=== PATIENT | female | born 1965 | race Caucasian/White ===

== ENCOUNTER → 2018-02-04 15:20 | Outpatient (CLI) | payer OTHER, SELFPAY ==
--- NOTE | 2018-02-04 12:20 | EMB_PTH ---
PATIENT: ANNABEL CARSON LOC: [facility] U#:[id number] AGE/SX: 59/F ROOM: RE02/04/[address]: Dr. Fausto Carcamo MD : 1965 BED: DIS: SPEC #: [id number] RECD: 02/04/18 14:31 STATUS: MARISELA LULA #: [id number] NELI: 02/04/18 12:[address]: Fausto Carcamo DEPT: SURGICAL PATHOLOGY RECD BY: Carleen Caputo ENTERED: 02/04/18 15:57 SP TYPE: ENDOM BX/C [id number] DR: No Primary Care Phys Tissues: Endometrium, NOS Procedures: Surgery Specimen Level IV HEADER OPERATION: Endometrial biopsy PRE-OP DIAGNOSIS: Postmenopausal bleeding TISSUE SUBMITTED: Endometrial biopsy MICROSCOPIC DIAGNOSIS Endometrial biopsy: Weakly proliferative endometrium, blood and mucous. SJ:kerry 02/05/18 MICROSCOPIC DESCRIPTION Slides are reviewed. GROSS DESCRIPTION Received in fixative is one container labeled with the patient's name and designated endometrial biopsy. The specimen consists of multiple irregular and mucoid fragments of pink-bucio soft tissue that in aggregate measure 2 x 1.6 x 0.1 cm. The specimen is totally submitted in one cassette. / AM:kerry 02/04/18 TC:5 CPT: 27308
[2018-02-09 11:16] LABS: HPV Reflexed? NOT INDICATED
== END ==
PROVIDERS: Visit Provider Obstetrics & Gynecology
DX: Z12.4 Encounter for screening for malignant neoplasm of cervix (principal); N85.8 Other specified noninflammatory disorders of uterus; N95.0 Postmenopausal bleeding
CPT/HCPCS: 88175; 88305; G0145

== ENCOUNTER 2018-08-07 15:16 | Emergency (ER) | payer OTHER, SELFPAY ==
[2018-08-07 15:17] VITALS: BP 143/69; PULSE 61; RESP 17; TEMP 37.1; O2SAT 100; BMI 33.3
--- NOTE | 2018-08-07 15:28 | ED.VISSUMM ---
- ER Visit Summary Date of Service: 08/07/18 Chief Complaint: Injury dorsal proximal right forearm History of Present Illness: The patient is a 52 F who is right-hand dominant presents after mechanical fall injuring her right forearm. She denies pain. She denies paresthesia, anesthesia or motor weakness. She is on no anticoagulant. She denies any allergies. She denies shoulder pain, elbow pain, wrist pain or pain in her fingers or thumb. She states she slipped and fell onto her right elbow Physical Examination: Vital signs noted. There is no pain to palpation over the olecranon process, medial or lateral epicondyle and there is no pain over the radial head with supination or pronation. There is no pain palpation over the distal radius or ulna. There is no pain abrasion over the carpal bones, metacarpal bones or phalanges. Axillary, median, radial and ulnar nerve function intact. Radial pulses palpable. There is an area with avulsed skin/devitalized skin. There is also a gaping 2.0 cm laceration with what appears to be gravel. There is also a V-shaped laceration which is one-point centimeter and a irregularly shaped laceration which is 2.0 cm in length. Test Results: None Emergency Department Course and Treatment: Tetanus update since tetanus status is unknown. The wound was anesthetized by local infiltration and irrigated with 250 cc of normal saline. The skin was closed using 5-0 Ethilon. Simple interrupted sutures were placed. Treatment Plan: Clean wound, suture wound and appropriate home-going instructions for wound care Disposition: Discharged home in stable and improved condition Impression: 1. Mechanical fall with injury initial encounter 2. 1.0 cm laceration right forearm initial encounter 3. 2.0 cm laceration with superficial gravel right forearm initial encounter 3. 2.0 cm laceration right forearm initial encounter This note was generated with [employer] dictation software. It may contain incorrect words, spelling, and punctuation that were not noted in review of the chart prior to signing ED Disposition - Plan for ED Patient: Disposition: Home or Assisted Living Chief Complaint: Laceration Instructions: ED Laceration All Referrals: Care Physician,No Primary [Primary Care Provider] - Naomi Ghosh [Fountain Operator] - 10-14 Days suture removal Additional Instructions: Clean wound with peroxide and Q-tip 3 times a day then apply bacitracin ointment. Have wound reassessed in 2-3 days. If there is any colored drainage, swelling with redness or red streak return to the emergency department.
--- NOTE | 2018-08-07 15:31 | ED.DCSUM_ITS ---
- ER Visit Summary Date of Service: 08/07/18 Chief Complaint: Injury dorsal proximal right forearm History of Present Illness: The patient is a 52 F who is right-hand dominant presents after mechanical fall injuring her right forearm. She denies pain. She denies paresthesia, anesthesia or motor weakness. She is on no anticoagulant. She denies any allergies. She denies shoulder pain, elbow pain, wrist pain or pain in her fingers or thumb. She states she slipped and fell onto her right elbow Physical Examination: Vital signs noted. There is no pain to palpation over the olecranon process, medial or lateral epicondyle and there is no pain over the radial head with supination or pronation. There is no pain palpation over the distal radius or ulna. There is no pain abrasion over the carpal bones, metacarpal bones or phalanges. Axillary, median, radial and ulnar nerve f unction intact. Radial pulses palpable. There is an area with avulsed skin/devitalized skin. There is also a gaping 2.0 cm laceration with what appears to be gravel. There is also a V-shaped lace ration which is one-point centimeter and a irregularly shaped laceration which is 2.0 cm in length. Test Results: None Emergency Department Course and Treatment: Tetanus update since tetanus status is unknown. The wound was anesthetized by local infiltration and irrigated with 250 cc of normal saline. The skin was closed using 5-0 Ethilon. Simple interrupted sutures were placed. Treatment Plan: Clean wound, suture wound and appropriate home-going instructions for wound care Disposition: Discharged home in stable and improved condition Impression: 1. Mechanical fall with injury initial encounter 2. 1.0 cm laceration right forearm initial encounter 3. 2.0 cm laceration with superficial gravel right forearm initial encounter 3. 2.0 cm laceration right forearm initial encounter This note was generated with [employer] dictation software. It may contain incorrect words, spelling, and punctuation that were not noted in review of the chart prior to signing ED Disposition - Plan for ED Patient: Disposition: Home or Assisted Living Chief Complaint: Laceration Instructions: ED Laceration All Referrals: Care Physician,No Primary [Primary Care Provider] - Naomi Ghosh [Chemical Test Engineer] - 10-14 Days suture removal Additional Instructions: Clean wound with peroxide and Q-tip 3 times a day then apply bacitracin ointment. Have wound reassessed in 2-3 days. If there is any colored drainage, swelling with redness or red streak return to the emergency department.
[2018-08-07] MEDS: Diphth,Pertuss(Acell),Tet Vac 0.5 ML Vial IM (15:45)
[2018-08-07 16:50] VITALS: BP 122/68; PULSE 87; RESP 16; O2SAT 100
== END 2018-08-07 16:55 | disposition home or self-care (01) ==
PROVIDERS: Emergency Provider Emergency Medicine
DX: S51.811A Laceration without foreign body of right forearm, initial encounter (principal); W01.0XXA Fall on same level from slipping, tripping and stumbling without subsequent striking against object, initial encounter; Y93.9 Activity, unspecified; Y92.9 Unspecified place or not applicable; E66.9 Obesity, unspecified
CPT/HCPCS: 12002; 90471; 90715; 99283

== ENCOUNTER → 2020-12-03 07:00 | Outpatient (CLI) | payer SELFPAY ==
--- NOTE | 2020-12-03 07:04 | CT_ITS ---
STUDY: CT LEFT LOWER EXTREMITY REASON FOR EXAM: Left hip osteoarthritis, fall 10 years ago, presurgical planning. TECHNIQUE: Transaxial CT imaging of the left lower extremity was performed. Sagittal and coronal images were reconstructed. Individualized dose optimization techniques were used for this CT. COMPARISON: Radiographs 10/17/2020. FINDINGS: Left hip: There are small marginal osteophytes, joint space narrowing at the superior lateral aspect of the left hip with subchondral cystic change of the femoral head and acetabulum (coronal reconstructions 73-76). There is also joint space narrowing and subchondral cystic change of the contralateral right hip (coronal reconstructions 70-73). There is mild arthrosis of the sacroiliac joints bilaterally (axial images 132-146). There is mild vascular calcification. Left knee: There are marginal osteophytes and joint space narrowing of the patellofemoral compartments of the bilateral knees (axial image 568). There is preservation of the joint spaces of the medial and lateral femorotibial compartments of the left knee. There is preservation of the joint space of the medial and lateral femorotibial compartments of the contralateral right knee. CT/Extremity Lower without Contra IMPRESSION: Left hip arthrosis. Electronically Signed: Matthew Gillespie MD at 8:20 EST Tel , Service support ,
== END ==
PROVIDERS: Referring Provider Orthopaedic Surgery; Visit Provider Orthopaedic Surgery
DX: M87.052 Idiopathic aseptic necrosis of left femur (principal); M87.051 Idiopathic aseptic necrosis of right femur
CPT/HCPCS: 73700

== ENCOUNTER 2020-12-18 05:15 | Day surgery (SDC) | payer SELFPAY ==
[2020-10-17 13:32] VITALS: BMI 33.3
[2020-12-07 08:08] LABS: Absolute Lymphocyte Count 2.08 X10^3/uL (0.83-4.51); Absolute Neutrophil Count 4.3 X10^3/uL (2.0-7.7); Basophil# 0.05 X10^3/uL; Basophil% 0.7 % (0-1); Eosinophil# 0.34 X10^3/uL; Eosinophils% 4.4 % (0-5); Hematocrit 40.7 % (37-47); Hemoglobin 13.5 g/dL (12.0-15.0); Lymphocyte # 2.08 X10^3/ul (4.0); Lymphocyte % 27.2 % (19-41); Mean Corp Hgb Conc 33.2 g/dL (32-36); Mean Corpuscular Hgb 29.9 pg (27.0-32.0); Mean Corpuscular Volume 90.2 fL (81-99); Mean Platelet Vol. 9.7 fl (6.2-12.0); Monocyte# 0.85 X10^3/uL; Monocyte% 11.1 % (0-10); NRBC Flagged by Analyzer 0 % (0-5); Neutrophil # 4.31 X10^3/uL (2.7-7.7); Neutrophil % 56.3 % (47-70); Platelet Count 327 K/mm3 (150-450); RBC Distribution Width CV 12.2 % (11.6-14.6); RBC Distribution Width SD 40.5 fl (35.1-43.9); Red Blood Count 4.51 M/mm3 (4.2-5.4); White Blood Count 7.7 K/mm3 (4.4-11.0)
--- NOTE | 2020-12-07 08:17 | EKG12_ITS ---
Test Reason : PREOP Blood Pressure : / mmHG Vent. Rate : 066 BPM Atrial Rate : 066 BPM P-R Int : 164 ms QRS Dur : 072 ms QT Int : 390 ms P-R-T Axes : 034 -13 023 degrees QTc Int : 408 ms Normal sinus rhythm with sinus arrhythmia Poor R wave progression Confirmed by JACEY OCAMPO MD ([id number]), photograph editor OLIVIER VILLARREAL ([id number]) on 12/10/2020 3:06:23 PM Also confirmed by JACEY OCAMPO MD ([id number]), photograph editor OLIVIER VILLARREAL ([id number]) on 12/10/2020 3:15:00 PM Referred By: Venkat Kurtz Confirmed By:JACEY OCAMPO MD
[2020-12-07 08:20] LABS: Prothrombin Time (Protime)PT. 12.5 SECONDS (11.7-14.9)
[2020-12-07 08:21] LABS: Partial Thromboplast Time 27.3 Seconds (24.1-36.2)
[2020-12-07 08:37] LABS: Magnesium 2.3 mg/dL (1.6-2.6)
[2020-12-07 08:39] LABS: Anion Gap 6 (5-15); BUN 7 mg/dL (7-18); BUN/Creat Ratio 11.5 RATIO (10-20); Calcium,Total 9.2 mg/dL (8.5-10.1); Chloride 108 mmol/L (98-107); Creatinine, Serum 0.61 mg/dL (0.55-1.02); EST Glomerular Filtration Rate 109 mL/min (>60); Est Glom Filt Rate - Afr Amer 132 mL/min (>60); Glucose 109 mg/dL (74-106); Potassium 3.8 mmol/L (3.5-5.1); Sodium Level 141 mmol/L (136-145)
[2020-12-08 08:57] LABS: Fructosamine 200 umol/L (0-285)
[2020-12-18] VITALS (12 sets, daily range): BP systolic 97–148; BP diastolic 65–90; PULSE 50–87; RESP 14–16; TEMP 36.1–36.6; O2SAT 98–100; BMI 35.6
[2020-12-18] MEDS: Celecoxib 200 MG Capsule 400 MG PO (06:22)
[2020-12-18] MEDS: Acetaminophen 500 MG Tablet 1000 MG PO ×2 (06:22→14:15)
[2020-12-18] MEDS: Gabapentin 600 MG Tablet PO (06:22)
[2020-12-18] MEDS: Scopolamine 1mg/72hr Patch 1 PATCH TD (06:22)
[2020-12-18] MEDS: Lactated Ringers 1,000 ML 999 ML IV (06:28)
[2020-12-18 06:30] LABS: Bedside Glucose 157 mg/dL (70-110)
--- NOTE | 2020-12-18 07:24 | PCM.HP.BLA ---
History and Physical Date of Admission: 12/18/20 Intake Intake Visit Reasons: LEFT HIP Accompanied by: Spouse Is patient in pain?: Yes Pain scale (1-10): 8 Allergies No Known Allergies Allergy (Verified 11/26/20 08:07) Medications oxycodone-acetaminophen 5 mg-325 mg tablet 1 tab PO Q8H PRN 11/26/20 [History Confirmed 11/26/20] tizanidine 2 mg capsule 2 mg PO BID PRN 11/26/20 [History Confirmed 11/26/20] PFSH Surgical History Previous section (Acute) Social History (Updated 11/26/20 @ 09:[address] Venkat Kurtz DO) Smoking Status: Never smoker HPI LEFT HIP: Details: Parts of this documentation were recorded by a scribe, this documentation accurately reflects the service provided and the decisions made by me, Dr. Venkat Kurtz DO 11/26/20 0751. ANNABEL CARSON is a 55 year old F here today to discuss and sign consent for a left total hip. Patient states she and her spouse discussed putting the surgery first before they move. They stated Dr. Bell encouraged the surgery to be first. Patient has been taking Percocet (1 /day) and tizanidine for pain relief. Pain is rated: 8/10 from the pain scale. Pain worsens with activity. Patient has only been taking one Percocet daily, admits she tries not to. ROS [facility] Reports system reviewed and no additional complaints, except as docu, Reports joint pain, Denies numbness, Reports stiffness, Denies tingling Neuro No numbness, No tingling Ortho Exam General General: Yes no acute distress Neurologic: Yes alert Psychologic: Yes reasonable and appropriate Left Hip Skin/Wound: No Ecchymosis, No soft tissue swelling, No Erythema Hip: Absent eccymosis, soft tissue swelling or erythema Homans Sign: No HIP: internal rotation 40 degrees with lateral sided pain ext rotation: 78 degrees with lateral sided pain Supplemental Info 10/16/2020 MRI left hip:On disc with report from [facility]: Femoral head avascular necrosis with mild flattening superior anterior head there is joint space lossAcetabular edema subchondrally superior 10/16/2020 MRI right hipAvascular necrosis with mild flattening of the femoral headSmall right hip effusion Assessment & Plan Problems 1. Avascular necrosis of bones of both hips M87.051; M87.052 Plan Will order a CT scan before surgery of her pelvis. The replacement will last about 30 years without a fall or fracture. Explained advantages and disadvantages of anterior versus posterior approaches and we will proceed with a posterior approach. Patient will be on strict hip precautions For 3 months strict for 6 weeks postop. Explained and demonstrated hip movements patient could perform if need be. Patient will have three months at least between both surgeries. Patient will attend physical therapy post-op with hip abduction, help with ambulation, d/c walker and cane, and teach home exercises couple times every week. Demonstrated, educated and explained with the hip model and explained the implant. patient can continue with Dr. Bell for pain controlPreoperativelyBut counseled on minimizing use to help control pain postoperatively. Risks, benefits and alternatives of surgery reviewed including but not limited to bleeding, infection, nerve, artery and/or tissue damage, fracture, VTE, leg length discrepancy, dislocation, need for hip precautions, continued pain and expected post-operative course. All questions answered. Patient in agreement of plan. Follow up post-op or sooner if pain, swelling, numbness or associated symptoms, or concerns develop. Plan Detail Follow Up post-op Coding Level of Care Code Off vis,new,level 3 Diagnoses Avascular necrosis of bones of both hips M87.051; M87.052 I have re-examined the patient. There are no clinical changes since date of exam
[2020-12-18] MEDS: Cefazolin 2 GM in 0.9% Normal Saline 100 ML IV (07:30)
--- NOTE | 2020-12-18 07:30 | HIP_PTH ---
PATIENT: ANNABEL CARSON LOC: [facility] U#:[id number] AGE/SX: 55/F ROOM: RE12/18/[address]: Dr. Venkat Kurtz DO : 1965 BED: DIS: 12/18/2020 SPEC #: [id number] RECD: 12/18/20 10:14 STATUS: MARISELA RENisa #: [id number] NELI: 12/18/20 07:[address]: Venkat Kurtz DEPT: SURGICAL PATHOLOGY RECD BY: Rossy Hernández ENTERED: 12/18/20 11:51 SP TYPE: TOTAL HIP OTHR DR: No Primary Care Phys Tissues: Hip, NOS Procedures: Decalcification bone/plaque Surgery Specimen Level IV HEADER OPERATION: ERAS, total hip replacement robotic arm assist PRE-OP DIAGNOSIS: Avascular necrosis of bones of left hip TISSUE SUBMITTED: Left femoral head MICROSCOPIC DIAGNOSIS Left femoral head, total hip resection: Focal changes consistent with avascular necrosis. AM:kerry 12/21/2020 MICROSCOPIC DESCRIPTION Slides are reviewed. GROSS DESCRIPTION Received is one container labeled with the patient's name and designated left femoral head. The specimen consists of a bucio-red femoral head measuring 5.5 x 5 x 5 cm. The articular surface displays prominent osteophyte formation, eburnation and bone erosion. [employer] Management Sales Consultant sections are submitted in two cassettes after decalcification. / AM:kerry 12/18/20 TC:5 CPT: 59981, 95516
[2020-12-18] MEDS: dexAMETHasone 10 MG/ML Vial IV (08:00)
[2020-12-18] MEDS: Lactated Ringers 1,000 ML 100 ML IV (09:00)
--- NOTE | 2020-12-18 09:37 | RAD_ITS ---
STUDY: X-RAY - PELVIS AND LEFT HIP REASON FOR EXAM: Female, 55 years old. Post op left total hip. TECHNIQUE: 2 views of the pelvis and hip. COMPARISON: Comparison is made with prior examination dated 10/17/2020. FINDINGS: The patient is status post left total hip replacement. There is good alignment. Postoperative soft tissue changes. RAD/Hip Min 2 Views (Portable) IMPRESSION: Status post left hip replacement. There is good alignment. Postoperative soft tissue changes. Electronically Signed: Marlon Prescott MD at 11:09 EST , Service support ,
--- NOTE | 2020-12-18 09:41 | DCINST_ITS ---
Discharge Diet: No Restrictions Weight Bearing Status: Weight bearing as tolerated Keep extremity elevated above heart level: Operative Extremity Call your doctor if you observe: Shortness of breath, Chest pain Additional Instructions: Do not shower 72hrs. Begin daily showering warm water antibacterial soap postop day #3( 72hrs Post-operatively) and then daily. Leave the dressing on for 72 hours postoperatively then may remove prior to first shower and change dressing daily after this until no drainage for 2 consecutive days then may leave open to air. Follow hip precautions that were reviewed in hospital. Wear compression stockings, may remove at night. Start physical therapy as directed in hospital. Follow prescriptions instructions do not take any other pain medication or differ dosing without consulting your physician. Do not take oral NSAIDs until blood thinner has been completed , then may begin the day after completion if needed . Call Dr. Kurtz's office with any concerns. Allergies/Adverse Reactions: Allergies No Known Allergies Allergy (Verified 12/04/20 13:42) Medications to take at Discharge Lauraicidine 3,000 mg PO BID 11/28/20 Neurazenx 400 mg PO DAILY 11/28/20 Opti-EPA 500 mg PO QHS 11/28/20 Silymarin 112 mg PO 4X/DAY 11/28/20 Thyro-Advance 1 tablet PO BID 11/28/20 Ultra Zyme 1 tablet PO TID 11/28/20 Vital Trace minerals 1 tablet PO BID 11/28/20 ascorbate calcium (vitamin C) 500 mg tablet 500 mg PO TID 11/28/20 pantothenic acid (vit B5) 250 mg tablet 500 mg PO DAILY 11/28/20 vitamin B complex 1 tab PO TID 11/28/20 Acetaminophen [Tylenol Extra Strength] 1,000 mg PO Q6H PRN #100 tab 12/18/20 Apixaban [Eliquis] 2.5 mg PO BID #42 tab 12/18/20 Cephalexin [Keflex] 1,000 mg PO Q8 #4 cap 12/18/20 Ondansetron HCl [Zofran] 4 mg PO Q6H PRN PRN 5 Days #10 tab 12/18/20 Oxycodone [Oxyir] 5 mg PO Q4H PRN PRN #60 tablet 12/18/20 The following prescriptions were given: Apixaban [Eliquis] 2.5 mg PO BID #42 tab Transmission Status: Pending to [facility] Cephalexin [Keflex] 1,000 mg PO Q8 #4 cap Transmission Status: Pending to [facility] Oxycodone [Oxyir] 5 mg PO Q4H PRN PRN #60 tablet PRN Reason: Pain Score 6-10 Transmission Status: Sent to [facility] Acetaminophen [Tylenol Extra Strength] 1,000 mg PO Q6H PRN #100 tab Transmission Status: Pending to [facility] Ondansetron HCl [Zofran] 4 mg PO Q6H PRN PRN 5 Days #10 tab PRN Reason: Nausea Transmission Status: Pending to [facility] Orders to be completed after discharge: 12 Lead EKG [CV[facility]] Time Frame: 2 Weeks, Location: None Selected Primary Care Physician: Care Physician,No Primary [Primary Care Provider] - Test Results: Test results from this visit will be discussed in further detail at your follow- up appointment, if applicable. Please Follow Up With: Venkat Kurtz DO - 2 weeks
--- NOTE | 2020-12-18 09:42 | PCM.OPRPT ---
Report of Operation Date of Procedure: 12/18/20 Description of Surgical Findings:: Preoperative diagnosis: Left hip DJD Postoperative diagnosis: Same Procedure: CT-guided Makoplasty assisted left total hip arthroplasty Implants: Adelina Accolade II stem size 1, 127 degree neck angle 4 neck length 46 mm Trident II acetabular shell with 40 mm cancellous screw 32 mm ceramic head Anesthesia: Spinal EBL: 175 cc Complications: None Condition: Stable to PACU Indication for procedure: This is a 55-year-old female who has had avascular necrosis of bilateral hips, left being more symptomatic who has failed conservative treatment and wished to undergo total hip arthroplasty. We did discuss operative versus nonoperative intervention including risks of bleeding, infection , nerve artery tissue damage, need for further surgery, fracture, leg length discrepancy dislocation blood clot and need for postoperative physical therapy and postoperative expectations. An informed consent was signed. Procedure: Patient was met in the preoperative holding area once again the operative extremity was identified by both patient and physician and was marked. Patient was met by anesthesia . Anesthesia was started. patient was then positioned in the lateral decubitus position on a well-padded pegboard with an axillary roll. All bony prominences were checked and padded. The patient was prepped and draped in the usual sterile fashion. A timeout was called to ensure the proper patient procedure and extremity were being contemplated. Anatomic landmarks were palpated and marked for a standard posterior lateral approach. Prior to this the ASIS was palpated and 3 fingerbreadths proximal to this 3 pins were placed at a 45 degree angle into the iliac crest with good purchase, stab incisions were made with a 15 blade into the skin prior to placement. The Makoplasty array was then secured. A 10 blade scalpel was used to make a posterior incision through the skin and subcutaneous tissue. retractors were used and electrocautery was used to maintain meticulous hemostasis and dissect full-thickness flaps until the gluteal fascia was reached. The gluteal fascia was incised in line with the gluteal fibers. The bursal tissue was then freed from the underside and a Charnley retractor was placed. The femoral trochanteric checkpoint was placed and leg length was assessed using the trochanteric checkpoint and an EKG lead that was placed on the knee prior to prepping the leg .the fat pad was then elevated off of the external rotators with electrocautery and the external rotators were dissected off of the greater trochanter including the piriformis and were tagged with #1 Ethibond for later repair. The joint capsule opened with posterior trapdoor technique. The hip was surgically dislocated. The measurement on the preoperative CT from the top of the lesser trochanter to the femoral neck cut was marked Hohmann was placed around the lesser trochanter. A neck cutting guide was used to jasmin the neck with a Bovie and an oscillating saw was used complete the femoral neck cut. The femoral head was then removed and sized. We then turned our attention to the acetabulum. A Bovie was used to make a perforation in the anterior joint capsule and a Connelly retractor was placed this was repeated in the 6 o'clock position and a wide noé was placed there. With a long handled knife the labral and pulvinar tissue were removed. We then registered the acetabulum with the pointing array and confirmed our landmarks. Once the socket was thoroughly prepared and labral tissue and pulvinar was removed we single reamed with the robotic arm. We then used the robotic arm to position the acetabular implant and impacted it into place under robotic guidance. We then proceeded to place a posterior superior screw by drilling first measuring and inserting the screw. We then inserted a trial liner. And turned our attention back to the femur at this point a femoral elevator was used. As well as a pointed wide Hohmann around the lesser trochanter and a Hohmann to help retract the gluteus medius. A box chisel was used to remove excess lateral neck followed by a canal finder and a lateralizing reamer. This was followed by sequential broaches. Attention was made of the version within the canal based on preoperative templating. Once the final broach was seated we then trialed reduced the hip it was determined that a 127 degree neck angle with a +4 neck length was the appropriate size. We then checked stability with shuck testing as well as flexion and internal rotation. then proceeded with hip extension and checked leg lengths at the knees and heels as well as with the trochanteric checkpoint and knee EKG lead. At this point trials were removed. A liner was inserted to the cup. The femoral stem was inserted. We re-trialed and then proceeded to impact the femoral head onto the Chema taper. We then surgically reduce the hip check stability again and leg lengths and were satisfied. Betadine rinse was allowed to sit for 5 minutes while everyone changed their gloves. Thorough irrigation was performed. Followed by closure of the external rotators with #2 FiberWire followed by closure of gluteal fascia with #1 Ethibond. 0 Vicryl fat stitches and 2-0 Vicryl subcutaneous stitches and augustine in the skin. A pulls were placed in the pin sites over the iliac crest with Xeroform 4 x 4 and OpSite. dressing was applied to incisional area with Mepilex Ag and an abduction pillow was placed. Patient tolerated the procedure well there was no intraoperative complications all counts were correct and the patient was brought back to the PACU in stable condition
[2020-12-18] MEDS: Cefazolin 1 GM/50 ML BAG IV (11:36)
[2020-12-18] MEDS: oxyCODONE 5 MG Tablet PO ×2 (11:42→12:54)
[2020-12-18] MEDS: Ketorolac 30 MG/ML Syringe 15 MG IV (16:00)
== END 2020-12-18 16:19 | disposition home or self-care (01) ==
LOC: SDC 05:18 → AC 05:20
PROVIDERS: Anesthesiology; Referring Provider Orthopaedic Surgery; Visit Provider Orthopaedic Surgery
PROC: 8E0Y0CZ Robotic Assisted Procedure of Lower Extremity, Open Approach (ICD-10-PCS; CPT 27130; principal; 2020-12-18 07:00)
DX: M16.12 Unilateral primary osteoarthritis, left hip (principal); M87.052 Idiopathic aseptic necrosis of left femur; M87.051 Idiopathic aseptic necrosis of right femur; Z20.828 Contact with and (suspected) exposure to other viral communicable diseases; Z78.0 Asymptomatic menopausal state
CPT/HCPCS: 01214; 27130; 36415; 73502; 80048; 82962; 82985; 83735; 85025; 85610; 85730; 86850; 86900; 86901; 87081; 87426; 88305; 88311; 93005; 97162; C1776; C9803; J7120; J2405

== ENCOUNTER → 2021-02-05 06:55 | Outpatient (CLI) | payer SELFPAY ==
--- NOTE | 2021-02-05 06:59 | CT_ITS ---
STUDY: CT RIGHT LOWER EXTREMITY WITHOUT CONTRAST REASON FOR EXAM: Right hip osteoarthritis, surgical planning. TECHNIQUE: Transaxial CT imaging of the lower extremity was performed. Sagittal and coronal images were reconstructed. Individualized dose optimization techniques were used for this CT. COMPARISON: Radiographs 10/17/2020. FINDINGS: Right hip: There is joint space narrowing of right hip with subchondral cystic change of the right femoral head and acetabulum (coronal reconstruction 64-68). There is mild arthrosis of the sacroiliac joints bilaterally (axial images 151-178). There is mild vascular calcification. There is a left hip arthroplasty. Right knee: There are marginal osteophytes and joint space narrowing of the patellofemoral articulations bilaterally (axial reconstruction 526). There is preservation of the joint spaces of the medial and lateral femorotibial compartments of the right knee. CT/Extremity Lower without Contra IMPRESSION: Right hip arthrosis. Electronically Signed: Matthew Gillespie MD at 14:49 EDT Tel , Service support ,
== END ==
PROVIDERS: Referring Provider Orthopaedic Surgery; Visit Provider Orthopaedic Surgery
DX: M16.11 Unilateral primary osteoarthritis, right hip (principal)
CPT/HCPCS: 73700

== ENCOUNTER 2021-02-19 05:26 | Day surgery (SDC) | payer SELFPAY ==
[2020-12-18 06:01] VITALS: BMI 35.6
[2021-02-19] VITALS (10 sets, daily range): BP systolic 80–122; BP diastolic 45–97; PULSE 54–81; RESP 16–18; TEMP 36.2–36.8; O2SAT 96–100; BMI 34.5
[2021-02-19] MEDS: Lactated Ringers 1,000 ML 999 ML IV (06:20)
[2021-02-19] MEDS: Celecoxib 200 MG Capsule 400 MG PO (06:21)
[2021-02-19] MEDS: Acetaminophen 500 MG Tablet 1000 MG PO ×2 (06:21→15:50)
[2021-02-19] MEDS: Gabapentin 600 MG Tablet PO (06:22)
[2021-02-19] MEDS: Scopolamine 1mg/72hr Patch 1 PATCH TD (06:22)
[2021-02-19 06:25] LABS: Bedside Glucose 94 mg/dL (70-110)
--- NOTE | 2021-02-19 07:11 | HP.PCM_ITS ---
History and Physical Date of Admission: 02/19/21 Intake Intake Visit Reasons: right hip Allergies No Known Allergies Allergy (Verified 12/04/20 13:42) Medications Lauraicidine 3,000 mg PO BID 11/28/20 [History Confirmed 01/28/21] Neurazenx 400 mg PO DAILY 11/28/20 [History Confirmed 01/28/21] Opti-EPA 500 mg PO QHS 11/28/20 [History Confirmed 01/28/21] Silymarin 112 mg PO 4X/DAY 11/28/20 [History Confirmed 01/28/21] Thyro-Advance 1 tablet PO BID 11/28/20 [History Confirmed 01/28/21] Ultra Zyme 1 tablet PO TID 11/28/20 [History Confirmed 01/28/21] Vital Trace minerals 1 tablet PO BID 11/28/20 [History Confirmed 01/28/21] ascorbate calcium (vitamin C) 500 mg tablet 500 mg PO TID 11/28/20 [History Confirmed 01/28/21] pantothenic acid (vit B5) 250 mg tablet 500 mg PO DAILY 11/28/20 [History Confirmed 01/28/21] vitamin B complex 1 tab PO TID 11/28/20 [History Confirmed 01/28/21] Acetaminophen [Tylenol Extra Strength] 1,000 mg PO Q6H PRN #100 tab 12/18/20 [Rx Confirmed 01/28/21] miscellaneous medical supply 1 ea [facility] .PRN 180 Days #1 ea 12/31/20 [Rx Confirmed 01/28/21] PFSH Surgical History (Updated 12/18/20 @ 07:[address] Venkat Kurtz DO) Previous section (Acute) Social History (Updated 01/28/21 @ 11:[address] Venkat Kurtz DO) Smoking Status: Never smoker HPI right hip: Chief Complaint: right hip pain Details: Parts of this documentation were recorded by a scribe, this documentation accurately reflects the service provided and the decisions made by me, Dr. Venkat Kurtz DO 01/28/21 0811. ANNABEL CARSON is a 55 year old F here today for right hip pain. She has had this right hip pain for a few years. Denies any injuries. Denies any surgery of the right hip. She did have a right intra-articular hip injection last summer and she states this was helpful for about 1 month. She has right outer groin pain. She has a deep groin pain with sitting and standing. Denies any radiating leg pain. Denies numbness, tingling or other associated symptoms. She did have MRI which showed b/l hip AVN. she has already had the left hip done and did very well and this feels the same. She is also 6 week post op left LIANA. She has just been taking Tylenol and advil for her pain occasionally. She states that her left hip is just tender to touch at the incision. She states that she is standing and ambulating better than prior to surgery. Ortho Exam General General: Yes no acute distress Neurologic: Yes alert, Yes oriented x3 Psychologic: Yes reasonable and appropriate Right Hip Skin: No Ecchymosis, No soft tissue swelling, No Erythema Homans Sign: No HIP: internal 30 external 60 with pain Left Hip Date of Surgery: 12/18/20 Skin/Wound: Yes healed, No Ecchymosis, No soft tissue swelling, No Erythema Hip: Absent eccymosis, soft tissue swelling or erythema Homans Sign: No HIP: Incision well-healed no sign of hematoma or infection Supplemental Info 01/28/2021 x-ray right hip avascular necrosis with degenerative changes Assessment & Plan Problems 1. Primary osteoarthritis of right hip M16.11 2. Avascular necrosis of bones of both hips M87.051; M87.052 Plan Patient educated that the occasional left groin pain will become less and less over time. She will continue to improve over the next 1-2 years. Educated that her left hip xrays look good today there is no sign of infection or loosening. Patient educated that she has osteoarthritis of right hip. Educated that her treatment options are do nothing or PT or another intra-articular hip injection or right LIANA. Risks, benefits and alternatives of surgery reviewed including but not limited to bleeding, infection, nerve, artery and/or tissue damage, fracture, VTE, leg length discrepancy, dislocation, need for hip precautions, continued pain and expected post-operative course. Reviewed the pre-operative plans with the patient. Risks and benefits of the procedure were fully explained, including but not limited to infection, neurovascular injury, c ontinued pain, stiffness, need for further surgery, re-injury, DVT, PE, general risks of anesthesia, and loss of limb or life. The patient understands all the risks and does wish to proceed with written consent for right total hip arthroplasty robotic assisted. No Aleve or Ibuprofen 7 days before. Instructed to limit the sweets from now until surgery. She wishes to proceed with surgery 02/19/2021. Patient does not have to drink ensure drinks. Follow up 2 weeks post op or sooner if pain, swelling, numbness or associated symptoms, or concerns develop. All questions answered. Patient in agreement of plan. Orders Orders: HIP, UNI W/ Pelvis 2-3 Views Today Z47.89 Coding Level of Care Code Off vis,est,level 3 Diagnoses Primary osteoarthritis of right hip M16.11 Avascular necrosis of bones of both hips M87.051; M87.052 I have re-examined the patient. There are no clinical changes since date of exam Procedure Criteria Procedure Type: Elective COVID Risk Discussion: The surgeon/proceduralist and patient have discussed in detail the risk of exposure to and/or potential harm posed by the COVID-19 virus with having a surgery/procedure at this time versus the risk of delaying the surgery/procedure. It is not possible to know either the risk of delaying the surgery or procedure or chance of getting an infection with perfect accuracy, but a joint decision was made between the patient and the surgeon/proceduralist to proceed at this time with the scheduled surgery/procedure as indicated on the consent form.
[2021-02-19] MEDS: Cefazolin 2 GM in 0.9% Normal Saline 100 ML IV (07:45)
[2021-02-19] MEDS: dexAMETHasone 10 MG/ML Vial IV (08:01)
--- NOTE | 2021-02-19 10:13 | PCM.DC.ORTHO ---
Discharge Diet: No Restrictions, - - Minimize sweets ,as high sugar diet increases risk of infection Weight Bearing Status: Weight bearing as tolerated Keep extremity elevated above heart level: Operative Extremity Call your doctor if you observe: Shortness of breath Additional Instructions: Do not shower 72hrs. Begin daily showering warm water antibacterial soap postop day #3( 72hrs Post-operatively) and then daily. Leave the dressing on for 72 hours postoperatively then may remove prior to first shower and change dressing daily after this until no drainage for 2 consecutive days then may leave open to air. Follow hip precautions that were reviewed in hospital. Wear compression stockings, may remove at night. Start physical therapy as directed in hospital. Follow prescriptions instructions do not take any other pain medication or differ dosing without consulting your physician. Do not take oral NSAIDs until blood thinner has been completed , then may begin the day after completion if needed . Call Dr. Kurtz's office with any concerns. Allergies/Adverse Reactions: Allergies No Known Allergies Allergy (Verified 02/05/21 13:05) Medications to take at Discharge Lauraicidine 3,000 mg PO BID 11/28/20 Neurazenx 400 mg PO DAILY 11/28/20 Opti-EPA 500 mg PO QHS 11/28/20 Silymarin 112 mg PO 4X/DAY 11/28/20 Thyro-Advance 1 tablet PO BID 11/28/20 Ultra Zyme 1 tablet PO TID 11/28/20 Vital Trace minerals 1 tablet PO BID 11/28/20 ascorbate calcium (vitamin C) 500 mg tablet 500 mg PO TID 11/28/20 pantothenic acid (vit B5) 250 mg tablet 500 mg PO DAILY 11/28/20 vitamin B complex 1 tab PO TID 11/28/20 miscellaneous medical supply 1 ea MC .PRN 180 Days #1 ea 12/31/20 Acetaminophen [Tylenol] 1,000 mg PO Q8 #100 tablet 02/19/21 Apixaban [Eliquis] 2.5 mg PO BID #42 tablet 02/19/21 Cephalexin [Keflex] 1,000 mg PO Q8 #4 capsule 02/19/21 Oxycodone [Oxyir] 5 - 15 mg PO Q4H PRN PRN #60 tablet 02/19/21 The following prescriptions were given: Apixaban [Eliquis] 2.5 mg PO BID #42 tablet Transmission Status: Pending to [facility] Cephalexin [Keflex] 1,000 mg PO Q8 #4 capsule Transmission Status: Pending to [facility] Oxycodone [Oxyir] 5 - 15 mg PO Q4H PRN PRN #60 tablet PRN Reason: Pain Score 4-10/10 Transmission Status: Sent to [facility] Acetaminophen [Tylenol] 1,000 mg PO Q8 #100 tablet Transmission Status: Pending to [facility] Primary Care Physician: Care Physician,No Primary [Primary Care Provider] - Test Results: Test results from this visit will be discussed in further detail at your follow-up appointment, if applicable. Please Follow Up With: Venkat Kurtz DO - 2 weeks
--- NOTE | 2021-02-19 10:15 | OP.PCM_ITS ---
Report of Operation Date of Procedure: 02/19/21 Description of Surgical Findings:: Preoperative diagnosis: Right hip DJD Postoperative diagnosis: Same Procedure: CT-guided Makoplasty assisted right total hip arthroplasty Implants: Albert Lea Accolade II stem size 1, 127 degree neck angle 0 neck length 48 mm Trident II acetabular shell with a 30 mm mm cancellous screw and 32 mm ceramic head Anesthesia: Spinal EBL: 250 cc Complications: None Condition: Stable to PACU Indication for procedure: This is a 55-year-old female who has had avascular necrosis bilateral hips who has previously had left total hip arthroplasty who has failed conservative treatment and wished to undergo total hip arthroplasty. We did discuss operative versus nonoperative intervention including risks of bleeding, infection , nerve artery tissue damage, need for further surgery, fracture, leg length discrepancy dislocation blood clot and need for postoperative physical therapy and postoperative expectations. An informed consent was signed. Procedure: Patient was met in the preoperative holding area once again the operative extremity was identified by both patient and physician and was marked. Patient was met by anesthesia . Anesthesia was started. patient was then positioned in the lateral decubitus position on a well-padded pegboard with an axillary roll. All bony prominences were checked and padded. The patient was prepped and draped in the usual sterile fashion. A timeout was called to ensure the proper patient procedure and extremity were being contemplated. Anatomic landmarks were palpated and marked for a standard posterior lateral approach. Prior to this the ASIS was palpated and 3 fingerbreadths proximal to this 3 pins were placed at a 45 degree angle into the iliac crest with good purchase, stab incisions were made with a 15 blade into the skin prior to placement. The Makoplasty array was then secured. A 10 blade scalpel was used to make a posterior incision through the skin and subcutaneous tissue. retractors were used and electrocautery was used to maintain meticulous hemostasis and dissect full-thickness flaps until the gluteal fascia was reached. The gluteal fascia was incised in line with the gluteal fibers. The bursal tissue was then freed from the underside and a Charnley retractor was placed. The femoral trochanteric checkpoint was placed and leg length was assessed using the trochanteric checkpoint and an EKG lead that was placed on the knee prior to prepping the leg .the fat pad was then elevated off of the external rotators with electrocautery and the external rotators were dissected off of the greater trochanter including the piriformis and were tagged with #1 Ethibond for later repair. The joint capsule opened with posterior trapdoor technique. The hip was surgically dislocated. The measurement on the preoperative CT from the top of the lesser trochanter to the femoral neck cut was marked Hohmann was placed around the lesser trochanter. A neck cutting guide was used to jasmin the neck with a Bovie and an oscillating saw was used complete the femoral neck cut. The femoral head was then removed and sized. We then turned our attention to the acetabulum. A Bovie was used to make a perforation in the anterior joint capsule and a Connelly retractor was placed this was repeated in the 6 o'clock position and a wide noé was placed there. With a long handled knife the labral and pulvinar tissue were removed. We then registered the acetabulum with the pointing array and confirmed our landmarks. Once the socket was thoroughly prepared and labral tissue and pulvinar was removed we single reamed with the robotic arm. We then used the robotic arm to position the acetabular implant and impacted it into place under robotic guidance. We then proceeded to place a posterior superior screw by drilling first measuring and inserting the screw. We then inserted a trial liner. And turned our attention back to the femur at this point a femoral elevator was used. As well as a pointed wide Hohmann around the lesser trochanter and a Hohmann to help retract the gluteus medius. A box chisel was used to remove excess lateral neck followed by a canal finder and a lateralizing reamer. This was followed by sequential broaches. Attention was made of the version within the canal based on preoperative templating. Once the final broach was seated we then trialed reduced the hip it was determined that a 127 degree neck angle with a 0 neck length was the appropriate size. We then checked stability with shuck testing as well as flexion and internal rotation. then proceeded with hip extension and checked leg lengths at the knees and heels as well as with the trochanteric checkpoint and knee EKG lead. At this point trials were removed. A liner was inserted to the cup. The femoral stem was inserted. We re-trialed and then proceeded to impact the femoral head onto the Chema taper. We then surgically reduce the hip check stability again and leg lengths and were satisfied. Betadine rinse was allowed to sit for 5 minutes while everyone changed their gloves. Thorough irrigation was performed. Followed by closure of the external rotators with #2 FiberWire followed by closure of gluteal fascia with #1 Ethibond. 0 Vicryl fat stitches and 2-0 Vicryl subcutaneous stitches and augustine in the skin. A pulls were placed in the pin sites over the iliac crest with Xeroform 4 x 4 and OpSite. dressing was applied to incisional area with Mepilex Ag and an abduction pillow was placed. Patient tolerated the procedure well there was no intraoperative complications all counts were correct and the patient was brought back to the PACU in stable condition
--- NOTE | 2021-02-19 10:30 | RAD_ITS ---
STUDY: X-RAY - PELVIS AND RIGHT HIP REASON FOR EXAM: Postop right hip arthroplasty. TECHNIQUE: 2 views of the pelvis and hip. COMPARISON: Radiographs 01/28/2021. FINDINGS: There is postoperative gas in the soft tissues. There is mild arthrosis of the sacroiliac joints bilaterally. Normal bilateral superior and inferior pubic rami. Normal pubic symphysis. Normal bilateral ischial tuberosities. There is a right hip arthroplasty without evidence of complication. RAD/Hip Min 2 Views (Portable) IMPRESSION: Uncomplicated right hip arthroplasty. Electronically Signed: Matthew Gillespie MD at 13:00 EDT Tel , Service support ,
[2021-02-19] MEDS: Lactated Ringers 1,000 ML 125 ML IV (11:00)
[2021-02-19] MEDS: oxyCODONE 5 MG Tablet PO ×2 (12:27→15:50)
[2021-02-19] MEDS: Cefazolin 1 GM/50 ML BAG IV (12:27)
--- NOTE | 2021-02-19 12:29 | SUR.PHASEII ---
Patient aware of cost for Eliquis that was ordered and refusing. Dr. Santiago aware and gave patient options for Xaralto, Lovenox or Baby Aspirin. The patient was given the cost of each and chose the Baby Aspirin. Dr. Hathaway was updated.
== END 2021-02-19 16:19 | disposition home or self-care (01) ==
LOC: SDC 05:27 → AC 05:28
PROVIDERS: Referring Provider Orthopaedic Surgery; Visit Provider Orthopaedic Surgery
PROC: 8E0Y0CZ Robotic Assisted Procedure of Lower Extremity, Open Approach (ICD-10-PCS; CPT 27130; principal; 2021-02-19 07:00)
DX: M16.11 Unilateral primary osteoarthritis, right hip (principal); M87.051 Idiopathic aseptic necrosis of right femur; M87.052 Idiopathic aseptic necrosis of left femur; Z20.822 Contact with and (suspected) exposure to COVID-19; Z78.0 Asymptomatic menopausal state; Z96.642 Presence of left artificial hip joint
CPT/HCPCS: 01214; 27130; 36415; 73502; 82962; 86850; 86900; 86901; 87081; 87426; 97162; C1713; C1776; C9803; J7120; J2405

== ENCOUNTER 2024-06-13 13:54 | Inpatient (IN) | payer OTHER, SELFPAY ==
[2024-06-13] VITALS (9 sets, daily range): BP systolic 144–179; BP diastolic 69–94; PULSE 61–77; RESP 14–20; TEMP 36–36.8; O2SAT 97–100; BMI 34.7; BMI 34.4
--- NOTE | 2024-06-13 14:29 | RAD_ITS ---
STUDY: X-RAY CHEST REASON FOR EXAM: Female, 58 years old. Stroke sx, mediastinal eval TECHNIQUE: PA and lateral views of the chest. COMPARISON: None. FINDINGS: EKG electrodes are seen. Elevation of the anterior aspect of the right hemidiaphragm. The lungs are clear. There is no demonstrated pleural abnormality. Normal size heart. Normal mediastinum and herson. Normal visualized pulmonary arteries. Normal visualized aortic arch and descending thoracic aorta. Normal visualized thoracic spine. Normal visualized ribs, clavicles, and shoulders. There is no demonstrated abnormality of the visualized soft tissue structures of the upper abdomen. RAD/Chest PA and Lateral IMPRESSION: Normal x-ray examination of the chest. Electronically Signed: Marlon Prescott MD at 15:01 EDT ,
--- NOTE | 2024-06-13 14:29 | EKG12_ITS ---
Test Reason : Blood Pressure : / mmHG Vent. Rate : 061 BPM Atrial Rate : 061 BPM P-R Int : 168 ms QRS Dur : 076 ms QT Int : 424 ms P-R-T Axes : 021 -10 024 degrees QTc Int : 426 ms Normal sinus rhythm Minimal voltage criteria for LVH, may be normal variant ( R in aVL ) Borderline ECG Confirmed by ADONAY SALAZAR, RACHAEL ([id number]), editorial writer BYRON JUAN ([id number]) on 06/15/2024 9:38:29 AM Referred By: Confirmed By:RACHAEL URIAS MD
--- NOTE | 2024-06-13 14:30 | ED.VIS.STROK ---
HPI History of Present Illness Chief Complaint: Numb/Ting Informant: patient and spouse/S.O. Narrative Narrative: 58-year-old female presenting with left lower facial numbness, left upper extremity numbness and weakness, and left lower extremity weakness that started 6 days ago, it has not gone away so she presents for the first time to have it evaluated. She is having trouble walking because of her left leg being weak, and the notes that she was having trouble going up steps. She does not have a PCP or see a doctor regularly, she takes no medications for any medical problems that she knows of. She states 6 days ago she woke up with the symptoms, and the day before that she was feeling poorly but did not have these symptoms. PFSH PFSH Medical History no medical history no medical history Home Medications ?Medication ?Instructions ?Recorded ?Last Taken ?Type NK 06/13/24 Unknown History Allergy/AdvReac Type Severity Reaction Status Date / Time No Known Allergies Allergy Verified 06/13/24 13:58 Family History no significant family his Surgical History Previous section Social History Smoking Status: Never smoker ROS ROS ED Constitutional Constitutional ED: Reports weakness; Denies chills or fever(s) Eyes Eyes: Denies change in vision or diplopia ENT ENT ED: Denies rhinorrhea or sore throat Cardiovascular Cardiovascular: Denies chest pain or palpitations Respiratory/Chest Respiratory/Chest: Denies cough or dyspnea Gastrointestinal Gastrointestinal: Denies abdominal pain, diarrhea, nausea or vomiting Genitourinary Genitourinary ED: Denies dysuria or hematuria Musculoskeletal Musculoskeletal: Denies back pain or neck pain Integumentary Denies abscess or rash Neurologic Neurologic: Reports paresthesias and weakness; Denies headache(s) Psychiatric Psychiatric: Denies suicidal thoughts EXAM Physical Exam Const Vital Signs: 06/13/24 13:56 06/13/24 14:29 06/13/24 14:29 Temperature 96.8 F L Temperature Source Temporal Pulse Rate 76 77 Respiratory Rate 19 H 15 Blood Pressure 166/94 H 157/76 H Blood Pressure Mean 118 103 Pulse Ox 100 98 Oxygen Delivery Method Room Air Room Air Room Air 06/13/24 14:55 06/13/24 15:00 Temperature Temperature Source Pulse Rate 64 70 Respiratory Rate 14 20 H Blood Pressure 156/77 H 154/69 H Blood Pressure Mean 103 97 Pulse Ox 97 100 Oxygen Delivery Method Room Air Room Air Positive well nourished and well developed General Appearance ED: well developed and NAD HEENT Reports moist mucous membranes normocephalic and atraumatic Eyes PERRL and EOMs intact bilaterally Neck full ROM and supple Neck Narrative: no carotid bruits bilaterally Resp normal respiratory effort and clear to auscultation bilaterally Cardio regular rate, regular rhythm and no murmurs Rate: Negative for tachycardic GI non-tender and non-distended Auscultation: normoactive bowel sounds Palpation: soft Back/Spine no CVA tenderness General Back: other FROM Extremity normal to inspection General Extremety ED: Negative for edema, pulses abnormal or tenderness General Extremity: Negative for edema or pulses abnormal Neuro oriented x3 and no sensory deficits noted Neuro Narrative: see NIHSS. nml speech. trouble doing HTS on left due to mild drift/weakness. Sensorium / Orientation: awake and alert Psych mental status grossly normal Skin no rashes or lesions noted and no wounds NIHSS NIHSS Initial: 1a Level of Consciousness: 0 1b LOC Questions (Score 2 if aphasic/stupor): 0 1c LOC Commands (Only score 1st attempt): 0 2 Best Gaze (If aphasic, use reflexive mvmts.): 0 3 Visual: 0 4 Facial Palsy: 1 5 Motor Arm Right (UN = amputation/fusion): 0 5 Motor Arm Left: 0 6 Motor Leg Right: 0 6 Motor Leg Left: 1 7 Limb ataxia (Only + if out of proportion): 0 8 Sensory (Aphasia/stupor=0 or 1, coma=2): 0 9 Best Language: 0 10 Dysarthria (mute, coma=2, intubated=UN): 0 11 Extinction and Inattention (only scored if +): 0 Total Score: 2 MDM MDM MDM Narrative Medical decision making narrative: I reviewed the CT images and the result which I agree with, it is essentially negative. EKG sinus rhythm, no A-fib, unclear why she is having unilateral weakness. Other primary neurologic issues are in the differential such as multiple sclerosis, small cerebral mass, this is not an exclusive list. She was initially hypertensive 166/94, however systolic blood pressures come down to 146. Plan is for admission for further workup. Lab Data Attestation: I reviewed the patient's lab results. Labs: Laboratory Results - last 24 hr 06/13/24 06/13/24 14:35 14:37 WBC 8.6 RBC 4.66 Hgb 13.5 Hct 41.5 MCV 89.1 MCH 29.0 MCHC 32.5 RDW Std Deviation 41.1 RDW Coeff of [place] 12.5 Plt Count 290 MPV 9.8 Immature Gran % (Auto) 0.400 Neut % (Auto) 57.6 Lymph % (Auto) 27.5 [place] % (Auto) 10.7 H Eos % (Auto) 3.0 Baso % (Auto) 0.8 Absolute Neuts (auto) 4.9 Absolute Lymphs (auto) 2.35 Nucleated RBC % 0 PT 14.4 INR 1.1 APTT 27.7 Sodium 138 Potassium 3.7 Chloride 107 Carbon Dioxide 26.0 Anion Gap 5 BUN 9 Creatinine 0.63 Estim Creat Clear Calc 93.78 Est GFR (MDRD) Af Amer 125 Est GFR (MDRD) Non-Af 103 BUN/Creatinine Ratio 14.2 Glucose 86 Calcium 9.3 Troponin I High Sens 5 POC Glucose 78 Radiography Diagnostic Testing: Clinical Impression(s) from Imaging Studies Chest X-Ray 06/13/24 14:29 IMPRESSION: Normal x-ray examination of the chest. Electronically Signed: Marlon Prescott MD at 15:01 EDT , Brain CT 06/13/24 14:50 IMPRESSION: Normal unenhanced CT scan of the brain. N.B. : The above Results were Read Back by Marlon Prescott MD to Juan Grayson and understanding confirmed on 06/13/2024 15:03:39 (ET). Electronically Signed: Marlon Prescott MD at 15:05 EDT , ADDENDUM: 06/13/24 1512 IMPRESSION: Normal unenhanced CT scan of the brain. N.B. : The above Results were Read Back by Marlon Prescott MD to Juan Kenan and understanding confirmed on 06/13/2024 15:03:39 (ET). Electronically Signed: Marlon Prescott MD at 15:05 EDT , Rhythm Strip Rhythm Strip: Sinus Rhythm Rate: 62 Ectopy: None EKG Initial EKG: Attestation: I personally reviewed and interpreted this EKG as follows: Interpretation: Sinus Rhythm and No Acute Injury Pattern Comments: nml EKG Prior EKG tracings: available for review Prior: Unchanged Management Discussion w/another healthcare provider: Hospitalist and Radiologist Stroke Documentation Questions Stroke Team Activated: No (due to timing presentation) Was Patient considered for Endovascular Intervention?: No-CTA not indicated IV Thrombolytic Administered: No (timing) Discharge Plan Dx/Rx/DC Orders Clinical Impression: Acute left hemiparesis Disposition Disposition: Acute Care Hospital [facility]
[2024-06-13 14:48] LABS: Absolute Lymphocyte Count 2.35 X10^3/uL (0.83-4.51); Absolute Neutrophil Count 4.9 X10^3/uL (2.0-7.7); Basophil# 0.07 X10^3/uL; Basophil% 0.8 % (0-1); Eosinophil# 0.26 X10^3/uL; Hematocrit 41.5 % (37-47); Hemoglobin 13.5 g/dL (12.0-15.0); Lymphocyte # 2.35 X10^3/ul (0.83-4.51); Lymphocyte % 27.5 % (19-41); Mean Corp Hgb Conc 32.5 g/dL (32-36); Mean Corpuscular Volume 89.1 fL (81-99); Mean Platelet Vol. 9.8 fl (6.2-12.0); Monocyte# 0.92 X10^3/uL; Monocyte% 10.7 % (0-10); NRBC Flagged by Analyzer 0 % (0-5); Neutrophil # 4.93 X10^3/uL (2.7-7.7); Neutrophil % 57.6 % (47-70); Platelet Count 290 K/mm3 (150-450); RBC Distribution Width CV 12.5 % (11.6-14.6); RBC Distribution Width SD 41.1 fl (35.1-43.9); Red Blood Count 4.66 M/mm3 (4.2-5.4); White Blood Count 8.6 K/mm3 (4.4-11.0)
--- NOTE | 2024-06-13 14:50 | CT_ITS ---
STUDY: CT HEAD STROKE PROTOCOL W/O CONTRAST INJECTION REASON FOR EXAM: Female, 58 years old. Neuro deficit, acute, stroke suspected RADIATION DOSAGE (If Supplied By Facility): CTDIvol = ( 44.99 ) mGy, DLP = ( 762.36 ) mGycm TECHNIQUE: Transaxial CT imaging of the brain was performed without administration of intravenous contrast material. Individualized dose optimization techniques were used for this CT. COMPARISON: No relevant priors. FINDINGS: Normal soft tissue structures. Normal calvarium. Normal size ventricles and extra-axial spaces for the patient''s age. Normal white matter tracts of the cerebral hemispheres. Normal basal ganglia and thalami. Normal brainstem. Normal cerebellum. There is no intracranial hemorrhage. There are no findings of an acute ischemic infarction. Normal visualized paranasal sinuses. ASPECT score: 10 CT/Brain/Head without Contrast IMPRESSION: Normal unenhanced CT scan of the brain. N.B. : The above Results were Read Back by Marlon Prescott MD to Juan Grayson and understanding confirmed on 06/13/2024 15:03:39 (ET). Electronically Signed: Marlon Prescott MD at 15:05 EDT ,
[2024-06-13 14:54] LABS: Bedside Glucose 78 mg/dL (74-106)
[2024-06-13 15:01] LABS: Anion Gap 5 (5-15); BUN 9 mg/dL (7-18); BUN/Creat Ratio 14.2 RATIO (10-20); Calcium,Total 9.3 mg/dL (8.5-10.1); Chloride 107 mmol/L (98-107); Creatinine, Serum 0.63 mg/dL (0.55-1.02); EST Glomerular Filtration Rate 103 mL/min (>60); Est Glom Filt Rate - Afr Amer 125 mL/min (>60); Estimated Creatinine Clearance 93.78 ml/min; Glucose 86 mg/dL (74-106); Potassium 3.7 mmol/L (3.5-5.1); Sodium Level 138 mmol/L (136-145); Troponin-I HS 5 pg/mL (3.0-54.0)
[2024-06-13 15:56] LABS: International Normalized Ratio 1.1; Prothrombin Time (Protime)PT. 14.4 SECONDS (11.7-14.9)
[2024-06-13 15:57] LABS: Partial Thromboplast Time 27.7 Seconds (24.1-36.2)
--- NOTE | 2024-06-13 16:16 | CT_ITS ---
We are attempting to reach an attending provider to discuss findings. An addendum with communication details will be sent when the communication is complete. EXAM: CT ANGIOGRAPHY HEAD AND NECK WITH INTRAVENOUS CONTRAST CLINICAL INDICATION: Neuro deficit, acute, stroke suspected TECHNIQUE: [place]/head and neck CT angiography protocol performed with intravenous contrast. This CT exam was performed using one or more of the following dose reduction techniques: automated exposure control, adjustment of the mA and/or kV according to patient size, and/or use of iterative reconstruction technique. MIP reconstructed images were created and reviewed. CONTRAST: IV 100mL [id number] COMPARISON: No relevant prior studies available. FINDINGS: HEAD: RIGHT ANTERIOR CEREBRAL ARTERY: Unremarkable. No occlusion or significant stenosis. Anterior communicating artery is present. No aneurysm. RIGHT MIDDLE CEREBRAL ARTERY: Unremarkable. No occlusion or significant stenosis. No aneurysm. RIGHT POSTERIOR CEREBRAL ARTERY: Unremarkable. No occlusion or significant stenosis. No aneurysm. RIGHT INTRACRANIAL INTERNAL CAROTID ARTERY: Unremarkable. No significant stenosis. No dissection or occlusion. RIGHT INTRACRANIAL VERTEBRAL ARTERY: Unremarkable. No significant stenosis. No dissection or occlusion. LEFT ANTERIOR CEREBRAL ARTERY: Unremarkable. No occlusion or significant stenosis. No aneurysm. LEFT MIDDLE CEREBRAL ARTERY: Unremarkable. No occlusion or significant stenosis. No aneurysm. LEFT POSTERIOR CEREBRAL ARTERY: There is a origin left posterior cerebral artery which is an anatomic variant. No occlusion or significant stenosis. No aneurysm. LEFT INTRACRANIAL INTERNAL CAROTID ARTERY: Unremarkable. No significant stenosis. No dissection or occlusion. LEFT INTRACRANIAL VERTEBRAL ARTERY: Unremarkable. No significant stenosis. No dissection or occlusion. BASILAR ARTERY: Unremarkable. No occlusion or significant stenosis. No aneurysm. OTHER VASCULATURE: No vascular malformation. NECK: RIGHT COMMON CAROTID ARTERY: Unremarkable. No significant stenosis. No dissection or occlusion. RIGHT EXTRACRANIAL INTERNAL CAROTID ARTERY: Unremarkable. No significant stenosis. No dissection or occlusion. RIGHT EXTERNAL CAROTID ARTERY: Unremarkable. No occlusion. RIGHT EXTRACRANIAL VERTEBRAL ARTERY: Unremarkable. No significant stenosis. No dissection or occlusion. LEFT COMMON CAROTID ARTERY: Unremarkable. No significant stenosis. No dissection or occlusion. LEFT EXTRACRANIAL INTERNAL CAROTID ARTERY: Unremarkable. No significant stenosis. No dissection or occlusion. LEFT EXTERNAL CAROTID ARTERY: Unremarkable. No occlusion. LEFT EXTRACRANIAL VERTEBRAL ARTERY: Unremarkable. No significant stenosis. No dissection or occlusion. BRACHIOCEPHALIC AND SUBCLAVIAN ARTERIES: Unremarkable as visualized. No occlusion or significant stenosis. LUNG APICES: Unremarkable as visualized. HEAD and NECK: BONES/JOINTS: Unremarkable. No discrete lytic or blastic abnormalities. SOFT TISSUES: Unremarkable. CAROTID STENOSIS REFERENCE USING NASCET CRITERIA: % ICA stenosis = (1 - narrowest ICA diameter/diameter of distal cervical ICA) x 100. Mild - <50% stenosis. Moderate - 50-69% stenosis. Severe - 70-94% stenosis. Near occlusion - 95-99% stenosis. Occluded - 100% stenosis. CT/CTA Head AND Neck W/ Contrast IMPRESSION: No acute findings in the arteries of the head and neck. Electronically Signed: Pranay Shi MD at 16:42 EDT ,
--- NOTE | 2024-06-13 16:16 | MRI_ITS ---
We are attempting to reach an attending provider to discuss findings. An addendum with communication details will be sent when the communication is complete. INDICATION: L sided weakness EXAMINATION: MRI - MR Brain WO/W Contrast TECHNIQUE: MRI examination of brain obtained with standard protocol including multiplanar multiecho imaging. Pre and Postcontrast imaging obtained. IV Contrast Dosage and Agent: 15 mL Clariscan COMPARISON: CT and CTA examination of 06/13/2024 FINDINGS: HEMISPHERES, CEREBELLUM AND BRAINSTEM: 1. The cerebral parenchyma, ventricular system, subarachnoid spaces have normal configuration and density. There is a normal gyral pattern. There is normal diamond/white differentiation. No midline shift.. 2. The hemispheric white matter has normal appearance. 3. There is focal area of fluid restriction of the RIGHT paramedian lee with a matched ADC abnormality consistent with an acute RIGHT pontine infarct. Only minimal FLAIR and T2 abnormality noted, consistent with a hyperacute infarct. No evidence of contrast enhancement. 4. No other evidence of intraparenchymal mass, hemorrhage, or infarct 5. The cerebellum, basilar and suprasellar cisterns have normal configuration. No Chiari malformation. PITUITARY: Infundibulum and pituitary have normal configuration. Midline structures appear normal. CSF SPACES: Appropriate for age. No hydrocephalus. Basal cisterns are patent. VESSELS: 1. There are normal flow voids noted in the great vessels at the skull base ORBITS AND PARANASAL SINUSES: 1. Both globes, extraocular muscles, optic nerves and retrobulbar fat appear unremarkable. 2. Paranasal sinuses are clear. BONY ELEMENTS: Bony elements of the cranial vault, facial skeleton and skull base have normal appearance. SCALP AND SOFT TISSUES: Normal appearance of the soft tissues of the scalp and the visualized face OTHER: None MRI/Brain W/WO Contrast IMPRESSION: 1. RIGHT paramedian pontine hyperacute infarct without evidence of mass effect or hemorrhage. This shows diffusion and matched ADC abnormality however no significant FLAIR abnormality, consistent with hyperacute infarct. 2. No other evidence of mass, hemorrhage, or acute territorial infarct. Electronically Signed: Rafat Hunter MD at 20:25 EDT ,
--- NOTE | 2024-06-13 16:16 | ECHOD_ITS ---
Reason For Study: TIA/STROKE Procedure This was a 2D Doppler, Color Flow transthoracic echocardiogram. Exam performed portable in patient room. Left Ventricle Normal LV size. Left ventricular systolic function is normal. The left ventricular ejection fraction is 65 %. Stage 1 diastolic dysfunction. No regional wall motion abnormalities noted. Right Ventricle Normal RV size. Normal systolic function. Atria Normal left atrium. Normal right atrium. Bubble contrast study negative for right to left interatrial shunt. Mitral Valve Normal mitral valve. Tricuspid Valve Normal tricuspid valve. Aortic Valve Normal aortic valve. Pulmonic Valve The pulmonic valve is not well visualized. Great Vessels Normal aortic root. The pulmonary artery is normal size. Normal inferior vena cava. Pericardium/Pleural No pericardial effusion. Medication Performed a rapid injection of agitated mix of 9 cc saline and 1cc air to assess for atrial septal defect. MMode/2D Measurements & Calculations LVIDd: 4.2 cm IVSd: 1.0 cm LVOT diam: 2.0 cm LVIDs: 2.4 cm LVPWd: 0.96 cm RVDd: 3.7 cm FS: 42.3 % LVOT area: 3.0 cm2 Ao root diam: 2.7 cm LAV(MOD-bp): 48.7 ml LVAd ap4: 18.8 cm2 LAV(MOD-bp) Indexed: 27.5 ml/m2 LVLd ap4: 7.0 cm LAV(MOD-sp2): 54.5 ml EDV(MOD-sp4): 41.7 ml LAV(MOD-sp4): 42.9 ml EDV(sp4-el): 42.9 ml LVAs ap4: 9.4 cm2 LVLs ap4: 5.4 cm ESV(MOD-sp4): 14.5 ml ESV(sp4-el): 13.9 ml EF(MOD-sp4): 65.2 % EF(sp4-el): 67.7 % LVAd ap2: 15.9 cm2 SV(MOD-sp4): 27.2 ml SV(MOD-sp2): 20.0 ml LVLd ap2: 6.4 cm EDV(MOD-sp2): 33.6 ml EDV(sp2-el): 33.7 ml LVAs ap2: 9.2 cm2 LVLs ap2: 5.5 cm ESV(MOD-sp2): 13.6 ml ESV(sp2-el): 13.2 ml EF(MOD-sp2): 59.6 % SV(sp4-el): 29.0 ml LA dimension(2D): 3.6 cm LA A4 area: 16.9 cm2 RA A4 area: 11.2 cm2 TAPSE: 2.4 cm Time Measurements MV dec time: 0.21 sec Doppler Measurements & Calculations MV E max raoul: 89.2 cm/sec Lat Peak E' Raoul: 7.7 cm/sec Med Peak E' Raoul: 9.0 cm/sec MV A max raoul: 110.4 cm/sec E/E' lat: 11.6 E/E' med: 9.9 MV E/A: 0.81 Ao V2 max: 161.2 cm/sec LV V1 max: 107.1 cm/sec MV dec slope: 417.7 cm/sec2 Ao max P.4 mmHg LV V1 max P.6 mmHg Ao V2 mean: 104.4 cm/sec LV V1 mean P.1 mmHg Ao mean P.1 mmHg LV V1 mean: 67.2 cm/sec Ao V2 VTI: 35.5 cm LV V1 VTI: 23.2 cm AV (velocity ratio): 0.65 ROME(I,D): 2.0 cm2 ROME(V,D): 2.0 cm2 SV(LVOT): 69.7 ml PA V2 max: 83.2 cm/sec PA max PG (full): 0.68 mmHg ECHO/Echo Complete Interpretation Summary Normal LV size. Left ventricular systolic function is normal. The left ventricular ejection fraction is 65 %. Stage 1 diastolic dysfunction. Structurally normal valves. Ordering Physician: Shilpi Joshi Performed By: Ada Logan RDCS
--- NOTE | 2024-06-13 16:17 | PCM.HP.STD ---
HPI - General General Date of Admission: 06/13/24 Date of Service: 06/13/24 Chief Complaint: Left-sided weakness/left facial droop HPI Narrative ANNABEL CARSON, is a 58 F who presented to the emergency department at [facility] on 06/13/2020 for left-sided weakness and left facial droop with some perioral numbness mostly on the left side that started about 6 days prior to presentation. She states it slowly been getting worse. She never had anything like this previously. She states while she stated she has not noticed much change in her strength however ambulating has become progressively difficult and yesterday she was not able to lift her left arm above her head. She states she has had difficulty doing her hair she has very long hair and wears her hair up on a regular basis. Her arm strength is a little bit better today however she states her leg is about the same. She denies any extremity sensory changes. She takes no medications at home and denies any other associated symptoms. Her was at the bedside and he states that he has noted a change in her ambulation capabilities as well. Vital signs on presentation showed a temperature of 96.8, heart rate 76, respiratory rate 19, blood pressure was 166/94 and pulse ox was 100% on room air. CBC was completely unremarkable. Coags were normal. Chemistry panel was unremarkable. Hemoglobin A1c was 5.5. Troponin was 5. TSH was 4.76. Glucose was normal. EKG was normal sinus rhythm without any ST or T wave changes and had normal intervals. Chest x-ray was unremarkable. CT of the brain was unremarkable. CTA of the head and neck was unremarkable. [facility] Medical History (Updated 06/13/24 @ 17:[address] Shilpi Joshi DO) Avascular necrosis of bones of both hips Medical History no medical history Home Medications ?Medication ?Instructions ?Recorded ?Last Taken ?Type NK 06/13/24 Unknown History Allergy/AdvReac Type Severity Reaction Status Date / Time No Known Allergies Allergy Verified 06/13/24 13:58 Family History no significant family his no significant family history Surgical History (Updated 06/13/24 @ 17:[address] Shilpi Joshi DO) History of bilateral total hip arthroplasty Previous section Social History (Updated 06/13/24 @ 17:[address] Shilpi Joshi DO) household members: family housing: house Smoking Status: Never smoker alcohol intake: never substance use type: does not use ROS Constitutional Constitutional: Denies anorexia, change in weight, chills, fatigue, fever(s), malaise, night sweats, weakness or other Eyes Eyes: Denies blurry vision, change in eye color, change in vision, discharge from eye(s), double vision, erythema, eye pain, loss of vision or other ENT HEENT: Denies abnormal hearing, dysphagia, ear pain, epistaxis, headache(s), hearing loss, nasal congestion, nasal discharge, post nasal drip, sinus pressure, sore throat or other Cardiovascular Cardiovascular: Denies chest pain, claudication, dyspnea on exertion, edema, lightheadedness, orthopnea, palpitations, paroxysmal nocturnal dyspnea, rapid heart rate, syncope or other Respiratory/Chest Respiratory/Chest: Denies cough, dyspnea, excessive phlegm production, hemoptysis, productive cough, shortness of breath at rest, shortness of breath with exertion, wheezing or other Gastrointestinal Gastrointestinal: Denies abdominal pain, coffee ground emesis, constipation, diarrhea, dyspepsia, hematemesis, hematochezia, loose stools, melena, nausea, vomiting or other Genitourinary Genitourinary: Denies burning urination, difficulty urinating, dysuria, hematuria, nocturia, urinary frequency, urinary hesitancy, urinary incontinence, urinary urgency or other Musculoskeletal Musculoskeletal: Denies arthralgias, back pain, joint pain, joint stiffness, joint swelling, myalgias, neck pain or other Neurologic Neurologic: Reports abnormal gait, focal weakness and tingling; Denies abnormal speech, confusion, disequilibrium, dizziness, headache(s), numbness, paresthesias, seizure-like activity, seizures, syncope, tremor(s) or other Psychiatric Psychiatric: Denies anxiety, depression, homicidal ideation, suicidal ideation or other Endocrine Endocrinology: Denies change in body appearance, cold intolerance, excessive sweating, heat intolerance, polydipsia, polyuria or other Hematologic/Lymphatic Hematologic/Lymphatic: Denies anemia, easy bleeding, easy bruising, lymphadenopathy or other Allergic/Immunologic Allergic/Immunologic: Denies rhinitis, hives, eczemia, asthma or other Vital Signs Vital Signs Vital Signs: 06/13/24 13:56 06/13/24 14:29 06/13/24 14:29 Temperature 96.8 F L Temperature Source Temporal Pulse Rate 76 77 Respiratory Rate 19 H 15 Blood Pressure 166/94 H 157/76 H Blood Pressure Mean 118 103 Pulse Ox 100 98 Oxygen Delivery Method Room Air Room Air Room Air 06/13/24 14:55 06/13/24 15:00 06/13/24 16:00 Temperature Temperature Source Pulse Rate 64 70 63 Respiratory Rate 14 20 H 20 H Blood Pressure 156/77 H 154/69 H 144/77 H Blood Pressure Mean 103 97 99 Pulse Ox 97 100 100 Oxygen Delivery Method Room Air Room Air Room Air Weight Weight: 80.694 kg Body Mass Index (BMI) 34.7 Physical Exam Const alert, oriented x3, no apparent distress and well nourished; Negative for average body habitus Constitutional Narrative: Middle-aged, white female, sitting up in bed, at bedside, appears comfortable, nontoxic, obese General Appearance: cooperative HEENT normocephalic, head/scalp atraumatic, hearing grossly normal bilaterally and moist oral mucous membranes HEENT Narrative: Mallampati is 2, no thrush Eyes PERRL, EOMs intact bilaterally and conjunctivae normal Eyes Narrative: No scleral icterus Neck no lymphadenopathy, supple, no JVD and no carotid bruits Neck Narrative: Trachea midline, no thyroid enlargement Resp normal respiratory effort, no retractions, no use of accessory muscles and clear to auscultation bilaterally Auscultation: Negative for rales, rhonchi or wheezes Cardio regular rate, regular rhythm, S1 normal heart sound, S2 normal heart sound, no murmurs, no rub, no gallops and no clicks GI normal to inspection, nondistended, normoactive bowel sounds, soft to palpation and non-tender Extremity no clubbing, cyanosis or edema Skin no rashes or lesions noted, no wounds, skin turgor normal, no jaundice, no petechiae and no mottling Neuro oriented x3 and moves all extremities Neuro Narrative: Mild left facial droop with mild V3 distribution sensory changes but all other cranial nerves are intact, no weakness with antigravity on the left side but patient does have some weakness with resisted motion, hyperreflexia throughout bilateral and lower extremities Speech: speech normal Psych affect normal Psych Narrative: Very pleasant, interacts appropriately Results Lab / Micro Data 06/13/24 14:35 06/13/24 14:35 Labs: Laboratory Results - last 24 hr 06/13/24 14:35: WBC 8.6, RBC 4.66, Hgb 13.5, Hct 41.5, MCV 89.1, MCH 29.0, MCHC 32.5, RDW Std Deviation 41.1, RDW Coeff of [place] 12.5, Plt Count 290, MPV 9.8, Immature Gran % (Auto) 0.400, Neut % (Auto) 57.6, Lymph % (Auto) 27.5, [place] % (Auto) 10.7 H, Eos % (Auto) 3.0, Baso % (Auto) 0.8, Absolute Neuts (auto) 4.9, Absolute Lymphs (auto) 2.35, Nucleated RBC % 0, PT 14.4, INR 1.1, APTT 27.7, Sodium 138, Potassium 3.7, Chloride 107, Carbon Dioxide 26.0, Anion Gap 5, BUN 9, Creatinine 0.63, Estim Creat Clear Calc 93.78, Est GFR (MDRD) Af Amer 125, Est GFR (MDRD) Non-Af 103, BUN/Creatinine Ratio 14.2, Glucose 86, Calcium 9.3, Troponin I High Sens 5 06/13/24 14:37: POC Glucose 78 Rhythm Strip Rhythm Strip: Sinus Rhythm Rate: 62 Ectopy: None Imaging Radiology Impression Chest X-Ray 06/13/24 14:29 IMPRESSION: Normal x-ray examination of the chest. Electronically Signed: Marlon Prescott MD at 15:01 EDT , Brain CT 06/13/24 14:50 IMPRESSION: Normal unenhanced CT scan of the brain. N.B. : The above Results were Read Back by Marlon Prescott MD to Juan Grayson and understanding confirmed on 06/13/2024 15:03:39 (ET). Electronically Signed: Marlon Prescott MD at 15:05 EDT , ADDENDUM: 06/13/24 1512 IMPRESSION: Normal unenhanced CT scan of the brain. N.B. : The above Results were Read Back by Marlon Prescott MD to Juan Grayson and understanding confirmed on 06/13/2024 15:03:39 (ET). Electronically Signed: Marlon Prescott MD at 15:05 EDT , Assessment & Plan Assessment/Plan (1) Acute left hemiparesis: (2) Facial droop: (3) Elevated blood pressure reading: PLAN: Plan Left-sided weakness/facial droop/left face paresthesias -Stroke order set in place for stroke rule out however my overall suspicion for stroke is extremely low -Continue aspirin 81 mg daily for now -Check lipids -Check hemoglobin A1c -High-dose atorvastatin for now -Check MRI with and without contrast -Check echocardiogram -Check sed rate/CRP -CT of the brain and CTA of the head and neck are unremarkable -PT/OT consultation -Check TSH/folate/B12 level -Neuro consultation Elevated blood pressure reading -Baseline blood pressure is unclear however her readings have been consistently elevated since being admitted -As needed blood pressure medicine available -Will allow for elevated pressures for now due to stroke rule out -If consistently elevated may need to add medication prior to discharge -Monitor per vital orders History of bilateral hip avascular necrosis -Status post bilateral hip arthroplasty -No acute issues Obesity -BMI is 34.5 next-recommend weight loss -Complicates treatment, prognosis, outcomes DVT prophylaxis -subcu Lovenox CODE STATUS -Full code as verified on admission Charges/Coding Visit Charges Inpatient E&M: 11654 Init Hosp L2
--- NOTE | 2024-06-13 16:25 | NURSING ---
DEANNA SCHULTE ACUTE LEFT HEMIPARESIS
[2024-06-13 16:52] LABS: Hemoglobin A1c 5.5 % (3.8-5.6)
[2024-06-13 16:58] LABS: Thyroid Stim Hormone (TSH) 4.76 uIU/mL (0.358-3.74)
[2024-06-13 17:48] LABS: Vitamin B12 496 pg/mL (211-911)
[2024-06-13 18:18] LABS: CRP 4.75 mg/L (0.0-3.0); T4 Free Direct 0.83 ng/dL (0.76-1.46)
[2024-06-13] MEDS: Aspirin 81 MG TAB.CHEW PO (18:40)
[2024-06-13] MEDS: Atorvastatin Calcium 80 MG Tablet PO (20:39)
--- NOTE | 2024-06-13 20:42 | PCM.HOSP.N ---
Hospitalist Note Called by radiology with regards to MRI. MRI showed positive stroke with right paramedian and pontine infarct which is subacute. Sounds like this may be an evolving stroke over the last several days. Will continue to allow for permissive hypertension. Continue aspirin and high intensity dose statin. Neuro consultation pending for tomorrow morning.
[2024-06-13 21:57] LABS: Erythrocyte Sedimentation Rate 6 mm/hr (0-30)
[2024-06-14 00:45] VITALS: BP 144/92; PULSE 58; RESP 16; TEMP 36.1; O2SAT 97
[2024-06-14 04:45] VITALS: BP 142/86; PULSE 89; RESP 16; TEMP 36.2; O2SAT 99
[2024-06-14 06:46] LABS: Absolute Lymphocyte Count 1.97 X10^3/uL (0.83-4.51); Absolute Neutrophil Count 3.2 X10^3/uL (2.0-7.7); Basophil# 0.05 X10^3/uL; Basophil% 0.8 % (0-1); Eosinophil# 0.33 X10^3/uL; Eosinophils% 5.2 % (0-5); Hematocrit 40.1 % (37-47); Hemoglobin 13.3 g/dL (12.0-15.0); Lymphocyte # 1.97 X10^3/ul (0.83-4.51); Lymphocyte % 30.9 % (19-41); Mean Corp Hgb Conc 33.2 g/dL (32-36); Mean Corpuscular Hgb 29.5 pg (27.0-32.0); Mean Corpuscular Volume 88.9 fL (81-99); Mean Platelet Vol. 9.9 fl (6.2-12.0); Monocyte# 0.81 X10^3/uL; Monocyte% 12.7 % (0-10); NRBC Flagged by Analyzer 0 % (0-5); Neutrophil # 3.21 X10^3/uL (2.7-7.7); Neutrophil % 50.2 % (47-70); Platelet Count 274 K/mm3 (150-450); RBC Distribution Width CV 12.5 % (11.6-14.6); RBC Distribution Width SD 40.8 fl (35.1-43.9); Red Blood Count 4.51 M/mm3 (4.2-5.4); White Blood Count 6.4 K/mm3 (4.4-11.0)
[2024-06-14 07:19] LABS: AST(SGOT) 15 U/L (15-37); Alanine Aminotransfer ALT/SGPT 20 U/L (13-56); Albumin, Serum 3.4 g/dL (3.2-5.0); Alkaline Phosphatase 62 U/L (45-117); Anion Gap 5 (5-15); BUN 10 mg/dL (7-18); BUN/Creat Ratio 16.1 RATIO (10-20); Calcium,Total 9.1 mg/dL (8.5-10.1); Chloride 108 mmol/L (98-107); Cholesterol 209 mg/dL (200); Creatinine, Serum 0.62 mg/dL (0.55-1.02); EST Glomerular Filtration Rate 105 mL/min (>60); Est Glom Filt Rate - Afr Amer 127 mL/min (>60); Estimated Creatinine Clearance 94.91 ml/min; Globulin 3.3 g/dL (2.2-4.2); Glucose 97 mg/dL (74-106); High Density Lipoprotein 43 mg/dL; Magnesium 2.2 mg/dL (1.6-2.6); Phosphorus 4.4 mg/dL (2.5-4.9); Potassium 3.8 mmol/L (3.5-5.1); Protein, Total 6.7 g/dL (6.4-8.2); Sodium Level 139 mmol/L (136-145); Triglycerides 131 mg/dL; Very Low Density Lipoprotein 26 mg/dL (5-40)
[2024-06-14 08:31] VITALS: BP 137/82; PULSE 57; RESP 16; TEMP 36.6; O2SAT 97
--- NOTE | 2024-06-14 10:23 | CASEMGMT ---
Social Work Pt completed PHQ-9 w/pt. Pt scored a 6. Pt's symptoms(change in appetite, not being able to sleep, being tired) she attributes to whatever is going on w/her medically, and not due to feeling down or depressed. Pt has no further social service needs in regard to PHQ-9 at this time. MARC Mcclure
--- NOTE | 2024-06-14 10:25 | CASEMGMT ---
Social Work SW spoke w/pt and in room as they are listed without insurance. They declined any financial resources at this time. MARC Mcclure
[2024-06-14] MEDS: Aspirin 81 MG TAB.CHEW PO (10:26)
[2024-06-14] MEDS: Enoxaparin 40 MG/0.4 ML Syringe SC (10:26)
--- NOTE | 2024-06-14 10:32 | CON.PCM.NE_ITS ---
Assessment and Plan: Stroke Assessment/Plan ANNABEL CARSON, is a 58 RH female with history of avascular necrosis of both hips who presented to [facility] 06/13/24 with 6 day history of left face/arm/leg weakness/numbness. In ER NIHSS-2. CT brain negative. She was admitted. CTA head/neck negative. MRI brain DWI +R pontine acute infarct. This morning patient feels 'pretty good and reports mild weakness in the left side. No numbness this morning. TTE was completed this AM, report pending. LDL 140. HgbA1c 5.5. Patient is on Asa, Lipitor 80, lovenox. Neurological examination shows mild left sided weakness. NIHSS-0 this morning. CTA head/neck negative. MRI brain DWI +R pontine acute infarct.. ASSESSMENT/PLAN: Acute right pontine ischemic stroke. Stroke mechanism is likely small vessel disease. 1) Stroke work-up pending TTE. If TTE negative, then stroke work-up completed and patient can DC home. 2) Continue daily anti-platelet medication (Asa) 3) Continue vascular risk factor modification (Lipitor 80). Recommend starting BP meds. 4) Can DC once stroke work-up completed (TTE resulted). Follow-up in outpatient neurology clinic. Messaged primary team on backline. HPI Consult Data Date of Consult: 06/14/24 HPI Narrative HPI Narrative: ANNABEL CARSON, is a 58 RH female with history of avascular necrosis of both hips who presented to [facility] 06/13/24 with 6 day history of left face/arm/leg weakness/numbness. In ER NIHSS-2. CT brain negative. She was admitted. CTA head/neck negative. MRI brain DWI +R pontine acute infarct. This morning patient feels 'pretty good and reports mild weakness in the left side. No numbness this morning. TTE was completed this AM, report pending. BP 166/94. [facility] Medical History (Updated 06/13/24 @ 17:[address] Shilpi Joshi, ) Avascular necrosis of bones of both hips Medical History no medical history Home Medications ?Medication ?Instructions ?Recorded ?Last Taken ?Type NK 06/13/24 Unknown History Allergy/AdvReac Type Severity Reaction Status Date / Time No Known Allergies Allergy Verified 06/13/24 13:58 Family History no significant family his Surgical History (Updated 06/13/24 @ 17:[address] Shilpi Joshi DO) History of bilateral total hip arthroplasty Previous section Social History (Updated 06/13/24 @ 17:[address] Shilpi Joshi DO) household members: family housing: house Smoking Status: Never smoker alcohol intake: never substance use type: does not use Vital Signs Vital Signs Vital Signs: 06/13/24 13:56 06/13/24 14:29 06/13/24 14:29 Temperature 96.8 F L Temperature Source Temporal Pulse Rate 76 77 Pulse Strength Respiratory Rate 19 H 15 Respiratory Effort Respiratory Depth Respiratory Pattern Blood Pressure 166/94 H 157/76 H Blood Pressure Mean 118 103 Blood Pressure Source Blood Pressure Position Blood Pressure Location Pulse Ox 100 98 Oxygen Delivery Method Room Air Room Air Room Air 06/13/24 14:55 06/13/24 15:00 06/13/24 16:00 Temperature Temperature Source Pulse Rate 64 70 63 Pulse Strength Respiratory Rate 14 20 H 20 H Respiratory Effort Respiratory Depth Respiratory Pattern Blood Pressure 156/77 H 154/69 H 144/77 H Blood Pressure Mean 103 97 99 Blood Pressure Source Blood Pressure Position Blood Pressure Location Pulse Ox 97 100 100 Oxygen Delivery Method Room Air Room Air Room Air 06/13/24 16:48 06/13/24 17:04 06/13/24 18:35 Temperature 97.2 F L 98.3 F Temperature Source Oral Pulse Rate 63 62 Pulse Strength Respiratory Rate 19 H 16 Respiratory Effort Normal Non-Labored Respiratory Depth Normal Respiratory Pattern Normal Blood Pressure 161/85 H 176/79 H Blood Pressure Mean 110 111 Blood Pressure Source Monitor Blood Pressure Position Semi-Fowlers Blood Pressure Location Right Arm Pulse Ox 100 99 Oxygen Delivery Method Room Air Room Air 06/13/24 19:30 06/13/24 19:30 06/13/24 20:31 Temperature Temperature Source Pulse Rate Pulse Strength Normal (2+) Respiratory Rate Respiratory Effort Normal Non-Labored Respiratory Depth Normal Respiratory Pattern Normal Blood Pressure Blood Pressure Mean Blood Pressure Source Blood Pressure Position Blood Pressure Location Pulse Ox 98 Oxygen Delivery Method Room Air 06/13/24 20:38 06/14/24 00:45 06/14/24 04:45 Temperature 98.0 F 96.9 F L 97.2 F L Temperature Source Oral Temporal Temporal Pulse Rate 61 58 L 89 Pulse Strength Respiratory Rate 16 16 16 Respiratory Effort Respiratory Depth Respiratory Pattern Blood Pressure 179/90 H 144/92 H 142/86 H Blood Pressure Mean 119 109 104 Blood Pressure Source Monitor Monitor Monitor Blood Pressure Position Semi-Fowlers Supine Supine Blood Pressure Location Right Arm Right Forearm Right Arm Pulse Ox 98 97 99 Oxygen Delivery Method Room Air Room Air Room Air 06/14/24 08:31 06/14/24 09:42 06/14/24 09:44 Temperature 97.8 F Temperature Source Temporal Pulse Rate 57 L Pulse Strength Normal (2+) Respiratory Rate 16 Respiratory Effort Normal Non-Labored Respiratory Depth Normal Respiratory Pattern Normal Blood Pressure 137/82 H Blood Pressure Mean 100 Blood Pressure Source Monitor Blood Pressure Position Semi-Fowlers Blood Pressure Location Right Arm Pulse Ox 97 Oxygen Delivery Method Room Air Room Air Weight Weight: 80.1 kg Body Mass Index (BMI) 34.4 NIHSS NIHSS Nursing Documentation NIHSS Nursing Documentation: NIHSS: Ischemic Stroke/TIA Start: 06/13/24 16:59 Text: For PCU Patients: NIH and Neuro Check every 4 Status: Active hours, PRN and with change in RN caregiver. Freq: [id number] Protocol: Activity Type Activity Date Activity User E-sign Co-sign Detail Recorded Client Recorded Date Recorded By Document 06/14/24 08:31 JS desktop 06/14/24 08:35 JS 06/14/24 08:31 NIH Stroke Scale [NIHSS] A score of 0 is normal or asymptomatic . Total possible score is 42. Inpatient: RN or Physician to activate a stroke alert for onset of new stroke symptoms or with NIHSS increase >/= 3 points. Following change in neurological status, NIHSS will be performed per physician order or more frequently PRN. -1a. Level of Consciousness Alert; keenly responsive -1b. LOC Questions Answers BOTH questions correctly. -1c. LOC Commands Performs both tasks correctly . -3. Visual No visual loss -4. Facial Palsy Normal symmetrical movements -5a. Left Arm No drift; arm holds 90 (or 45 ) degrees for full 10 seconds -5b. Right Arm No drift; arm holds 90 (or 45 ) degrees for full 10 seconds -6a. Left Leg No drift; leg holds 30-degree position for full 5 seconds -6b. Right Leg No drift; leg holds 30-degree position for full 5 seconds -7. Limb Ataxia Absent -8. Sensory Normal; no sensory loss -9. Best Language No aphasia; normal -10. Dysarthria Normal -11. Extinction and Inattention No abnormality -Total 0 Query Text:A score of 0 is normal or asymptomatic. Total possible score is 42 . ED: Notify Physician for NIHSS increase by > / = 3 points. Inpatient: RN or Physician to activate a stroke alert for NIHSS increase of > / = 3 points. Coma Scale [Assess] -Eye Opening Spontaneous -Motor Obeys Commands -Verbal Oriented [Total] -Coma Scale Total 15 NIHSS 1a. Level of Consciousness: Alert; keenly responsive 1b. LOC Questions: Answers BOTH questions correctly. 1c. LOC Commands: Performs both tasks correctly. 2. Best Gaze: Normal 3. Visual: No visual loss 4. Facial Palsy: Normal symmetrical movements 5a. Left Arm: No drift; arm holds 90 (or 45) degrees for full 10 seconds 5b. Right Arm: No drift; arm holds 90 (or 45) degrees for full 10 seconds 6a. Left Leg: No drift; leg holds 30-degree position for full 5 seconds 6b. Right Leg: No drift; leg holds 30-degree position for full 5 seconds 7. Limb Ataxia: Absent 8. Sensory: Normal; no sensory loss 9. Best Language: No aphasia; normal 10. Dysarthria: Normal 11. Extinction and Inattention: No abnormality Total: 0 Physical Exam Neuro Neuro Narrative: Neurological examination: General: The patient appears nutritionally appropriate, well-groomed, and appears comfortable in no acute distress. Mental Status: The patient?s mental status was normal including orientation. Language was intact. Cranial nerves: No visual complaints, extra-ocular motion was intact. Face motion and sensation were symmetric. Tongue was midline with normal movement. There was no dysarthria. Motor: Patient reports mild left arm/leg weakness. Able to anti- gravity without drift. FFM symmetric bilaterally. No pronator drift. Sensation: Intact light touch bilaterally. Coordination: Bilateral finger to nose was normal. There was no dysmetria. Gait: deferred Lab / Micro Data 06/14/24 06:33 06/14/24 06:33 Labs: Laboratory Results - last 24 hr 06/13/24 14:35: WBC 8.6, RBC 4.66, Hgb 13.5, Hct 41.5, MCV 89.1, MCH 29.0, MCHC 32.5, RDW Std Deviation 41.1, RDW Coeff of [place] 12.5, Plt Count 290, MPV 9.8, Immature Gran % (Auto) 0.400, Neut % (Auto) 57.6, Lymph % (Auto) 27.5, [place] % (Auto) 10.7 H, Eos % (Auto) 3.0, Baso % (Auto) 0.8, Absolute Neuts (auto) 4.9, Absolute Lymphs (auto) 2.35, Nucleated RBC % 0, PT 14.4, INR 1.1, APTT 27.7, Sodium 138, Potassium 3.7, Chloride 107, Carbon Dioxide 26.0, Anion Gap 5, BUN 9, Creatinine 0.63, Estim Creat Clear Calc 93.78, Est GFR (MDRD) Af Amer 125, Est GFR (MDRD) Non-Af 103, BUN/Creatinine Ratio 14.2, Glucose 86, Hemoglobin A1c 5.5, Calcium 9.3, Troponin I High Sens 5, C-React Prot Ext Range 4.75 H, Vitamin B12 496, Folate 17.50, TSH 4.76 H, Free T4 0.83 06/13/24 14:37: POC Glucose 78 06/13/24 20:15: ESR 6 06/14/24 06:33: WBC 6.4, RBC 4.51, Hgb 13.3, Hct 40.1, MCV 88.9, MCH 29.5, MCHC 33.2, RDW Std Deviation 40.8, RDW Coeff of [place] 12.5, Plt Count 274, MPV 9.9, Immature Gran % (Auto) 0.200, Neut % (Auto) 50.2, Lymph % (Auto) 30.9, [place] % (Auto) 12.7 H, Eos % (Auto) 5.2 H, Baso % (Auto) 0.8, Absolute Neuts (auto) 3.2, Absolute Lymphs (auto) 1.97, Nucleated RBC % 0, Sodium 139, Potassium 3.8, C hloride 108 H, Carbon Dioxide 26.0, Anion Gap 5, BUN 10, Creatinine 0.62, Estim Creat Clear Calc 94.91, Est GFR (MDRD) Af Amer 127, Est GFR (MDRD) Non-Af 105, BUN/Creatinine Ratio 16.1, Glucose 97, Calcium 9.1, Phosphorus 4.4, Magnesium 2.2, Total Bilirubin 0.50, AST 15, ALT 20, Alkaline Phosphatase 62, Total Protein 6.7, Albumin 3.4, Globulin 3.3, Albumin/Globulin Ratio 1.0, Triglycerides 131, Cholesterol 209 H, LDL Cholesterol 140 H, VLDL Cholesterol 26, HDL Cholesterol 43 Rhythm Strip Rhythm Strip: Sinus Rhythm Rate: 62 Ectopy: None Imaging Radiology Impression Chest X-Ray 06/13/24 14:29 IMPRESSION: Normal x-ray examination of the chest. Electronically Signed: Marlon Prescott MD at 15:01 EDT , Brain CT 06/13/24 14:50 IMPRESSION: Normal unenhanced CT scan of the brain. N.B. : The above Results were Read Back by Marlon Prescott MD to Juan Grayson and understanding confirmed on 06/13/2024 15:03:39 (ET). Electronically Signed: Marlon Prescott MD at 15:05 EDT , ADDENDUM: 06/13/24 1512 IMPRESSION: Normal unenhanced CT scan of the brain. N.B. : The above Results were Read Back by Marlon Prescott MD to Juan Grayson and understanding confirmed on 06/13/2024 15:03:39 (ET). Electronically Signed: Marlon Prescott MD at 15:05 EDT , Brain MRI 06/13/24 16:16 IMPRESSION: 1. RIGHT paramedian pontine hyperacute infarct without evidence of mass effect or hemorrhage. This shows diffusion and matched ADC abnormality however no significant FLAIR abnormality, consistent with hyperacute infarct. 2. No other evidence of mass, hemorrhage, or acute territorial infarct. Electronically Signed: Rafat Hunter MD at 20:25 EDT , ADDENDUM: 06/13/24 2046 IMPRESSION: 1. RIGHT paramedian pontine hyperacute infarct without evidence of mass effect or hemorrhage. This shows diffusion and matched ADC abnormality however no significant FLAIR abnormality, consistent with hyperacute infarct. 2. No other evidence of mass, hemorrhage, or acute territorial infarct. N.B. : The above Results were Read Back by Rafat Hunter MD to Shilpi Joshi DO, and understanding confirmed on 06/13/2024 20:39:18 (ET). Electronically Signed: Rafat Hunter MD at 20:25 EDT , Head/Neck CTA 06/13/24 16:16 IMPRESSION: No acute findings in the arteries of the head and neck. Electronically Signed: Pranay Shi MD at 16:42 EDT , ADDENDUM: 06/13/24 1658 IMPRESSION: No acute findings in the arteries of the head and neck. N.B. : The above Results were Read Back by Pranay Shi MD to Nabeel Grayson MD, and understanding confirmed on 06/13/2024 16:52:19 (ET). Electronically Signed: Pranay Shi MD at 16:42 EDT , Active Medications Active Medications Active Medications: Current Medications Generic Name Dose Route Start Last Admin Trade Name Freq PRN Reason Stop Dose Admin Acetaminophen 650 mg 06/13/24 16:59 Acetaminophen 325 Mg Tablet PO Q4H PRN PRN Pain 1-10 Or Fever>99.6 Aspirin 81 mg 06/14/24 08:00 06/14/24 10:26 Aspirin 81 Mg Tab.Chew PO 81 mg BREAKFAST TOSHIA Administration Atorvastatin Calcium 80 mg 06/13/24 22:00 06/13/24 20:39 Atorvastatin Calcium 80 Mg Tablet PO 80 mg QHS TOSHIA Administration Enoxaparin Sodium 40 mg 06/14/24 10:00 06/14/24 10:26 Enoxaparin 40 Mg/0.4 Ml Syringe SC 40 mg DAILY TOSHIA Administration Hydralazine HCl 5 mg 06/13/24 16:59 Hydralazine 20 Mg/Ml Vial IV 06/14/24 16:59 Q30M PRN maintain BP parameters with HR <60 Sodium Chloride 250 mls @ 15 mls/hr 06/13/24 17:13 IV .[id number] PRN Additional IVPB Infusion Sodium Chloride 250 mls @ 15 mls/hr 06/13/24 17:13 IV .[id number] PRN Saline Flush Ondansetron HCl 4 mg 06/13/24 16:59 Ondansetron 4 Mg/2 Ml Vial IV Q8H PRN PRN NAUSEA/VOMITING Senna/Docusate Sodium 2 tablet 06/13/24 16:59 Senna/Docusate Sodium 1 Tablet PO BID PRN PRN Constipation Sodium Chloride 10 - 40 ml 06/13/24 17:13 0.9% Saline Lock 10 Ml Syringe IV UD PRN SALINE FLUSH
--- NOTE | 2024-06-14 11:10 | CASEMGMT ---
JOSE DAO Assessment: Face to Face with pt for initial transition planning/care coordination assessment. RN FELIBERTO introduced self and role at [facility], pt voices understanding and consents to assessment. Pt is A&O x4 and answers all questions appropriately at this time. Pt sitting up in chair in no distress. Care providers, pharmacy, and demographics verified/updated. Strata: 2 Admitting Dx: L Hemiparesis/facial droop PCP: No PCP, provided pt with list of local PCP. Specialists: Denies Preferred Pharmacy: [facility] Insurance: [employer] Prescription Benefit: no LNOK: Living Arrangements: Pt lives with and 2 children at home. ADLs: Pt states I with ADLs and IADLs. Transportation: Pt has a front end driver and denies transportation needs at DC. DME:Denies HHC/SNF: Denies Hx of. Pt states no concerns with going home at time of dc. Pt states no further concerns/needs. CM to follow. Advised pt to ask CM if any further question/concerns/needs arise, voices understanding. Pt Goal: Home Plan: Home, CM to follow plan of care. [place] GARCIA CM
[2024-06-14 12:50] VITALS: BP 145/82; PULSE 64; RESP 16; TEMP 36.4; O2SAT 98
--- NOTE | 2024-06-14 13:46 | CASEMGMT ---
Social Work Pt confirms her is her healthcare POA. SW asked her to bring in the documents as able. MARC Mcclure
--- NOTE | 2024-06-14 14:42 | CHAPLAIN ---
Type of Pastoral Visit _x__ Initial Visit ___ Follow-up Visit ___ On-call Visit ___ General Patient Visit ___ Spiritual Assessment ___ Family Conference ___ Bereavement ___ Rapid Response ___ Code Blue ___ Other (describe below) Pastoral Care Referral From _x__ Patient ___ Family ___ Nurse ___ Physician ___ Director Of Career Resources ___ Diathermy Equipment Repairer ___ Other (describe below) Sacrament/Intervention _x__ Active listening ___ Anointing ___ Congregation ___ Bereavement ___ Communion ___ Vita exploration ___ _x__ Life review ___ Prayer ___ Reconciliation ___ Sacrament of Sick _x__ Supportive presence ___ Wedding ___ Other (describe below) Pastoral Comments patient and her spouse are in the room; pt is alert and able to answer questions; pt's spouse is also active in the communication; pt states that she is not worried but hopeful; pt's family has a big wedding planned for August in their [place] and will have lots to do soon; casual conversation about life occurs
--- NOTE | 2024-06-14 15:37 | CASEMGMT ---
RN CM updated that patient will be discharging today and would benefit from outpatient, script received. RN CM in to discuss needs at discharge. Patient states that she was wanting handout to complete exercises at home. RN FELIBERTO provided outpatient therapy script with [facility] information should she reconsider. RN CM called therapy to provide patient with handouts. Patient denied further needs or help at discharge. Patient had no further questions or concerns.
[2024-06-14 16:30] VITALS: BP 138/79; PULSE 69; RESP 16; TEMP 36.2; O2SAT 99
[2024-06-14 17:00] VITALS: BMI 34.4
--- NOTE | 2024-06-14 17:34 | PCM.DC.SUM ---
Providers Date of Admission: 06/13/24 Date of Discharge: 06/14/24 Primary Care Physician: Rachell Primary Care Phys Consultations 06/13/24 16:59 Consult: Tele-Neurology Routine Consulting Provider: [facility] Reason for Consult: Acute Ischemic Stroke/TIA EMERGENT Consult: No MD Notified: Yes Date Notified: 06/13/24 Time Notified: 16:09 Method of Notification: Answering Service Nursing Unit Staff Notify [facility] of Tele-Neurology Consult: Yes Reason For Visit: L HEMIPARESIS/FACIAL DROOP Diagnosis Discharge Diagnosis (1) Acute CVA (cerebrovascular accident): Status: Acute Code(s): I63.9 - Cerebral infarction, unspecified (2) Acute left hemiparesis: Status: Acute Code(s): G81.94 - Hemiplegia, unspecified affecting left nondominant side (3) Facial droop: Status: Acute Code(s): R29.810 - Facial weakness (4) Elevated blood pressure reading: Status: Acute Code(s): R03.0 - Elevated blood-pressure reading, without diagnosis of hypertension Medications at Discharge Home Medications amlodipine 5 mg tablet 5 mg PO DAILY #30 tabs 06/14/24 aspirin 81 mg chewable tablet 81 mg PO BREAKFAST 30 days #30 tabs 06/14/24 atorvastatin 80 mg tablet 80 mg PO QHS 30 days #30 tabs 06/14/24 Hospital Course Summary of Care Provided Minutes Spent on Discharge: 25 Hospital Course: 58-year-old female history of avascular necrosis of both hips presented to [facility] ED 06/13/2022 for left-sided weakness with left-sided facial droop that started 6 days prior to presentation and slowly got worse. Workup in ED was unremarkable and CTA head and neck unremarkable. Patient admitted for CVA workup, MRI showed right sided acute pontine infarct. Neuro evaluated and recommended blood pressure medication, aspirin, Lipitor and if TTE negative patient okay for DC home and follow-up outpatient neurology clinic. Patient did well and then reported slight weakness on left side still upper and lower but had no new or worsening complaints. Discharged home in stable condition with the following discharge instructions: -You will be discharged on a blood pressure medication, amlodipine. You will take this daily -You will also be discharged on aspirin and atorvastatin -You will be contacted by [facility] neurology to schedule a follow-up for your acute stroke -If you do not have a primary care physician of list of local primary care physicians can be provided for you upon discharge. Please ask for this list prior to discharge Physical Exam Narrative General: Alert, oriented, no apparent distress HEENT: Atraumatic, slight left lower facial droop Eyes: Anicteric, normal conjunctiva, extraocular movements intact, pupils equal Neck: Supple Respiratory: Clear to auscultation bilaterally, normal respiratory effort Cardiovascular: Regular rate and rhythm GI: Soft, nontender, nondistended Extremities: No edema Musculoskeletal: Strength 5 out of 5 in right upper extremity, 5 - out of 5 left upper extremity, 5 out of 5 right lower extremity, 5 out of 5 left lower extremity Neuro: Has slight left lower facial droop otherwise cranial nerves II through XII intact, [id number] without significant difficulty bilaterally Skin: No rashes appreciated Psych: Cooperative Weight / BMI Weight Weight: 80.1 kg Body Mass Index (BMI) 34.4 ABG / Lab / Microbiology Data 06/14/24 06:33 06/14/24 06:33 Laboratory: Laboratory Results - last 24 hr 06/13/24 14:35: C-React Prot Ext Range 4.75 H, Vitamin B12 496, Free T4 0.83 06/13/24 20:15: ESR 6 06/14/24 06:33: WBC 6.4, RBC 4.51, Hgb 13.3, Hct 40.1, MCV 88.9, MCH 29.5, MCHC 33.2, RDW Std Deviation 40.8, RDW Coeff of [place] 12.5, Plt Count 274, MPV 9.9, Immature Gran % (Auto) 0.200, Neut % (Auto) 50.2, Lymph % (Auto) 30.9, Porter % (Auto) 12.7 H, Eos % (Auto) 5.2 H, Baso % (Auto) 0.8, Absolute Neuts (auto) 3.2, Absolute Lymphs (auto) 1.97, Nucleated RBC % 0, Sodium 139, Potassium 3.8, Chloride 108 H, Carbon Dioxide 26.0, Anion Gap 5, BUN 10, Creatinine 0.62, Estim Creat Clear Calc 94.91, Est GFR (MDRD) Af Amer 127, Est GFR (MDRD) Non-Af 105, BUN/Creatinine Ratio 16.1, Glucose 97, Calcium 9.1, Phosphorus 4.4, Magnesium 2.2, Total Bilirubin 0.50, AST 15, ALT 20, Alkaline Phosphatase 62, Total Protein 6.7, Albumin 3.4, Globulin 3.3, Albumin/Globulin Ratio 1.0, Triglycerides 131, Cholesterol 209 H, LDL Cholesterol 140 H, VLDL Cholesterol 26, HDL Cholesterol 43 Radiography Diagnostic Testing: Radiology Impression Brain MRI 06/13/24 16:16 IMPRESSION: 1. RIGHT paramedian pontine hyperacute infarct without evidence of mass effect or hemorrhage. This shows diffusion and matched ADC abnormality however no significant FLAIR abnormality, consistent with hyperacute infarct. 2. No other evidence of mass, hemorrhage, or acute territorial infarct. Electronically Signed: Rafat Hunter MD at 20:25 EDT , ADDENDUM: 06/13/242045 IMPRESSION: 1. RIGHT paramedian pontine hyperacute infarct without evidence of mass effect or hemorrhage. This shows diffusion and matched ADC abnormality however no significant FLAIR abnormality, consistent with hyperacute infarct. 2. No other evidence of mass, hemorrhage, or acute territorial infarct. N.B. : The above Results were Read Back by Rafat Hunter MD to Shilpi Joshi DO, and understanding confirmed on 06/13/2024 20:39:18 (ET). Electronically Signed: Rafat Hunter MD at 20:25 EDT , D/C Instructions Discharge Diet: - (DASH diet) Meaningful Use Info Meaningful Use Meaningful Use Diagnoses (Choose all that apply): Ischemic CVA CVA Therapy Assessed for PT,OT and/or ST?: Yes Ischemic Stroke Antithrombotic order at d/c?: Yes Dx of Atrial fib/flutter?: No Statin Dosing Therapy Reference: STATIN DOSE THERAPY REFERENCE: * Patients > 75 years receive moderate or high dose statin therapy. * Patients 75 years or YOUNGER should receive HIGH intensity statin dose unless contraindicated. You will be required to document reason for non-treatment if statin daily dose does not meet guidelines. HIGH DOSE STATIN THERAPY DAILY Atorvastatin > than or = to 40 mg Rosuvastatin > than or = to 20 mg Amlodipine + Atorvastatin > than or = to 2.5/40 mg Ezetimibe + Simvastatin 10/80 mg Simvastatin 80mg Statins at discharge?: Yes If patient is 75 or younger, pt will be discharged on HIGH intensity statin.: Yes Primary Dx Acute Ischemic CVA?: Yes Discharge Plan Admission Admit Date/Time: 06/13/24 16:07 Primary Reason for Your Visit: Left sided weakness Attending Provider: Maria M Casas Primary Care Provider: Care Physician,No Primary Consulting Providers: Sridhar Sousa; Lesia Quinn; Estefania Bedoya; Kristal Khan; Liz Salcido; Renny Lloyd; Dorys Saldivar; Mike Burk; Erickson Carson; Jose Antonio Chan; Adelina Almeida; Chuy Mederos; Tammy Delcid; Emma Kruger; Sana Cardoza; Buddy Stevenson; Dylan Suarez; Triston Gandhi; Shelly Joshi; Marko Jones; Shilpi Joshi Instructions Patient Instructions: Discharge Instructions for Stroke Additional Instructions / Restrictions: DISCHARGE INSTRUCTIONS PLEASE READ *Please take this with you to your next doctors appointment* -You will be discharged on a blood pressure medication, amlodipine. You will take this daily -You will also be discharged on aspirin and atorvastatin -You will be contacted by [facility] neurology to schedule a follow-up for your acute stroke -If you do not have a primary care physician of list of local primary care physicians can be provided for you upon discharge. Please ask for this list prior to discharge -Please call your primary care provider's office upon discharge to schedule a hospital follow up within 1 week. -For any concerning signs or symptoms please call 911 or proceed to the nearest emergency department Discharge Orders/Prescriptions Prescriptions: New amlodipine 5 mg tablet 5 mg PO DAILY Qty: 30 0RF atorvastatin 80 mg Tablet 80 mg PO QHS 30 Days Qty: 30 0RF aspirin 81 mg Tablet,Chewable 81 mg PO BREAKFAST 30 Days Qty: 30 0RF Referrals / Follow Up: [facility], Neurology [Other] (You will be contacted by [facility] neurology to schedule a follow-up for your acute stroke) Care Physician,No Primary [Primary Care Provider] - ( -If you do not have a primary care physician of list of local primary care physicians can be provided for you upon discharge. Please ask for this list prior to discharge ) Disposition Disposition (needs filled in before D/C Order can be placed): Home, Self Care Charges/Coding Visit Charges Inpatient E&M: [id number] Disch Hosp
--- NOTE | 2024-06-14 18:29 | NURSING ---
Reviewed and agreed on charting with Lalo Douglas RN
== END 2024-06-14 18:38 | disposition home or self-care (01) | DRG 66 ==
LOC: ED 15:36 → PCU 16:20
PROVIDERS: Admitting Provider Internal Medicine; Emergency Provider Emergency Medicine; Visit Provider Internal Medicine
DX: I63.9 Cerebral infarction, unspecified (principal); E66.9 Obesity, unspecified; R03.0 Elevated blood-pressure reading, without diagnosis of hypertension; Z96.643 Presence of artificial hip joint, bilateral; Z68.34 Body mass index [BMI] 34.0-34.9, adult
CPT/HCPCS: 36415; 70450; 70496; 70498; 70553; 71046; 80048; 80053; 80061; 82607; 82746; 82962; 83036; 83735; 84100; 84439; 84443; 84484; 85025; 85610; 85652; 85730; 86140; 92610; 93005; 93306; 97162; 97166; 99285; A9575; Q9967; A4216